=== PATIENT | female | born 1950 | race American Indian/Alaskan Native ===

== ENCOUNTER 2017-05-02 12:12 | Emergency (ER) | payer MEDICARE, MEDICAID ==
[2017-05-02 12:45] VITALS: BP 143/68
== END 2017-05-02 15:12 | disposition left against medical advice (07) ==
LOC: DL.ED 12:12
DX: Z53.21 Procedure and treatment not carried out due to patient leaving prior to being seen by health care provider (principal)

== ENCOUNTER 2017-06-30 14:54 | Inpatient (IN) | payer MEDICARE, MEDICAID ==
[2017-07-04] MEDS ORDERED: Ondansetron 4 MG/2 ML SDV IVPUSH PRN (13:52)
[2017-07-04] MEDS ORDERED: Docusate Sodium 100 MG Cap PO PRN (13:52)
[2017-07-04] MEDS ORDERED: Ondansetron 4 MG Tab.DIS PO PRN (13:52)
[2017-07-04] MEDS ORDERED: Zolpidem 5 MG Tab PO PRN (13:52)
[2017-07-04] MEDS ORDERED: Albuterol 6.7 GM Inhaler INH PRN (13:57)
--- NOTE | 2017-07-04 14:29 | PCM.HP ---
H&P History of Present Illness - General Date of Service: 07/04/17 Admit Problem/Dx: Admission Diagnosis/Problem Admission Diagnosis/Problem Cellulitis Source of Information: Patient, Old Records - History of Present Illness Initial Comments - Free Text/Narative: The patient is a 66-year-old lady who has a history of diabetes, hypertension, chronic kidney disease, neurogenic bladder status post suprapubic catheter placement. The patient has peripheral artery disease. She was admitted to [facility] with right fifth toe gangrene. The patient was noted to have peripheral artery disease requiring the vascular surgery intervention. The atherectomy and angioplasty. The patient still required a right fifth toe amputation. Subsequently the patient was discharged but she was noted to have wound dehiscence and wound infection. She was readmitted to [facility]. She was seen by ID. Plan was to use IV antibiotics. She was transferred for wound care and IV antibiotic treatment to [facility]. - Related Data Allergies/Adverse Reactions: Allergies Allergy/AdvReac Type Severity Reaction Status Date / Time aspirin Allergy Nausea Verified 06/30/17 07:22 ibuprofen Allergy Hives Verified 06/30/17 07:22 metformin Allergy Abdominal Verified 06/30/17 07:22 Pain Home Medications: Home Meds Glimepiride 2 mg PO DAILY 12/23/14 [History] Losartan Potassium 25 mg PO DAILY 12/23/14 [History] Sertraline [Zoloft] 25 mg PO DAILY 12/23/14 [History] Alendronate [Fosamax] 70 mg PO Q7D@0600 10/08/15 [History] Albuterol [Proventil HFA] 1 puff INH Q2H PRN 04/13/16 [History] Insulin Detemir [Levemir] 12 unit SUBCUT BEDTIME 04/13/16 [History] Oxybutynin [Oxybutynin ER] 10 mg PO DAILY 04/13/16 [History] atorvaSTATin [Lipitor] 10 mg PO DAILY 04/13/16 [History] Canagliflozin [Invokana] 100 mg PO DAILY 06/30/17 [History] Ciprofloxacin [Ciprofloxacin HCl] 250 mg PO BID 06/30/17 [History] Clopidogrel [Plavix] 75 mg PO DAILY 06/30/17 [History] DULoxetine [Cymbalta] 60 mg PO DAILY 06/30/17 [History] Mometasone/Formoterol [Dulera 200-5 MCG] 1 puff IH BIDRT 06/30/17 [History] Polyethylene Glycol 3350 [MiraLAX] 17 gm PO DAILY 06/30/17 [History] Past Medical History HEENT History: Reports: Impaired Vision Other HEENT History: left eyes 02/04/15 is havign surgery to "unclog the arteries ", blind in left eye Cardiovascular History: Reports: Hypertension Respiratory History: Reports: Pneumonia, Recurrent Gastrointestinal History: Reports: GERD Other Gastrointestinal History: recent problem with constipation Genitourinary History: Reports: Other (See Below) Other Genitourinary History: bladder surgery Suprapubic cather [employer] History: Reports: Musculoskeletal History: Reports: Fibromyalgia, Osteoarthritis Neurological History: Reports: Neuropathy, Diabetic Psychiatric History: Reports: None Endocrine/Metabolic History: Reports: Diabetes, Type II Hematologic History: Reports: Anemia, Other (See Below) Other Hematologic History: Cystitis Hemorrhagic Immunologic History: Reports: None Oncologic (Cancer) History: Reports: None Dermatologic History: Reports: None - Infectious Disease History Infectious Disease History: Reports: Mumps - Past Surgical History Head Surgeries/Procedures: Reports: None HEENT Surgical History: Reports: Eye Surgery, Other (See Below) Other GI Surgeries/Procedures: Thinks she had appy at same time as other surgery Other Musculoskeletal Surgeries/Procedures:: rajesh in left femur (severe broken leg per info from pt) Social & Family History - Family History Family Medical History: Noncontributory - Tobacco Use Smoking Status *Q: Current Every Day Smoker Years of Tobacco use: 53 Packs/Tins Daily: 0.5 Used Tobacco, but Quit: No Second Hand Smoke Exposure: No - Caffeine Use Caffeine Use: Reports: Coffee, Tea - Alcohol Use Days Per Week of Alcohol Use: 0 - Recreational Drug Use Recreational Drug Use: No Drug Use in Last 12 Months: No Recreational Drug Type: Reports: Marijuana/Hashish Recreational Drug Use Frequency: Socially - Living Situation & Occupation Living situation: Reports: with Family Occupation: Retired H&P Review of Systems - Review of Systems: Review Of Systems: See Below General: Reports: Fever Pulmonary: Reports: Wheezing. Denies: Shortness of Breath Cardiovascular: Denies: Chest Pain, Edema Musculoskeletal: Reports: Foot Pain Exam - Exam Exam: See Below - Vital Signs Vital Signs: Last Vital Signs Temp 37.0 C 07/04/17 13:38 Pulse 93 07/04/17 13:38 Resp 20 07/04/17 13:38 BP 135/77 07/04/17 13:38 Pulse Ox 100 07/04/17 13:38 Weight: 45.269 kg - Exam General: Alert, Oriented Neck: Supple Lungs: Normal Respiratory Effort, Wheezing Cardiovascular: Regular Rate, Regular Rhythm GI/Abdominal Exam: Normal Bowel Sounds, Soft, Non-Tender Extremities: No Pedal Edema Skin: Other (Right foot with fifth toe amputation and wound VAC dressing) Neuro Extensive - Mental Status: Alert, Oriented x3, Normal Mood/Affect *Q Meaningful Use (ADM) - VTE *Q VTE Criteria *Q: - Stroke *Q Stroke Criteria *Q: - AMI *Q AMI Criteria *Q: - Problem List (1) Cellulitis SNOMED Code(s): 725490009 ICD Code: L03.90 - CELLULITIS, UNSPECIFIED Status: Acute Current Visit: Yes Problem List Initiated/Reviewed/Updated: Yes Orders Last 24hrs: Active Orders 24 hr Category Date Time Status Patient Status [ADT] Routine ADT 07/04/17 13:52 Active Antiembolic Devices [RC] PER UNIT ROUTINE Care 07/04/17 13:56 Active Glucose [Blood Glucose Check, Bedside] [RC] QIDACANDBED Care 07/04/17 13:52 Active Oxygen Therapy [RC] PRN Care 07/04/17 13:52 Active Peripheral IV Care [RC] . DIRECTED Care 07/04/17 13:56 Active Up With Assistance [RC] ASDIRECTED Care 07/04/17 13:52 Active VTE/DVT Education [RC] PER UNIT ROUTINE Care 07/04/17 13:52 Active Vital Signs [RC] QSHIFT Care 07/04/17 13:52 Active Consistent Carbohydrate Diet [DIET] Diet 07/04/17 Dinner Active BASIC METABOLIC PANEL,BMP [CHEM] AM Lab 07/05/17 05:15 Ordered CBC WITH AUTO DIFF [HEME] AM Lab 07/05/17 05:15 Ordered Acetaminophen [Tylenol] Med 07/04/17 13:52 Active 650 mg PO Q4H PRN Albuterol [Proventil HFA] Med 07/04/17 13:57 Ordered DOSE gm INH Q2H PRN Clopidogrel [Plavix] Med 07/05/17 09:00 Ordered 75 mg PO DAILY DULoxetine [Cymbalta] Med 07/05/17 09:00 Ordered 60 mg PO DAILY Docusate Sodium [Colace] Med 07/04/17 13:52 Active 100 mg PO BID PRN Glimepiride [Amaryl] Med 07/05/17 09:00 Ordered 2 mg PO DAILY Heparin Sodium Med 07/04/17 14:00 Active 5,000 units SUBCUT Q8HR Insulin Aspart [NovoLOG] Med 07/04/17 17:00 Active See Protocol SUBCUT TIDAC Insulin Detemir [Levemir] Med 07/04/17 21:00 Ordered 12 unit SUBCUT BEDTIME Losartan [Cozaar] Med 07/05/17 09:00 Ordered 25 mg PO DAILY Mometasone/Formoterol [Dulera 200-5 MCG] Med 07/04/17 18:00 Ordered 1 puff IH BIDRT Ondansetron [Zofran ODT] Med 07/04/17 13:52 Active 4 mg PO Q6H PRN Ondansetron [Zofran] Med 07/04/17 13:52 Active 4 mg IVPUSH Q6H PRN Oxybutynin [Oxybutynin ER] Med 07/05/17 09:00 Ordered 10 mg PO DAILY Polyethylene Glycol 3350 [MiraLAX] Med 07/05/17 09:00 Ordered 17 gm PO DAILY Sertraline [Zoloft] Med 07/05/17 09:00 Ordered 25 mg PO DAILY Sodium Chloride 0.9% [Saline Flush] Med 07/04/17 13:52 Active 10 ml FLUSH ASDIRECTED PRN Zolpidem [Ambien] Med 07/04/17 13:52 Active 5 mg PO BEDTIME PRN atorvaSTATin [Lipitor] Med 07/05/17 09:00 Ordered 10 mg PO DAILY cefTRIAXone [Rocephin] 2 gm Med 07/04/17 14:15 Ordered Sodium Chloride 0.9% [Normal Saline] 100 ml IV Q24H Antiembolic Hose [OM.PC] Per Unit Routine Oth 07/04/17 13:55 Ordered Peripheral IV Insertion Adult [OM.PC] Routine Oth 07/04/17 13:52 Ordered Saline Lock Insert [OM.PC] Routine Oth 07/04/17 13:52 Ordered Resuscitation Status Routine Resus Stat 07/04/17 13:52 Ordered Medication Orders Acetaminophen (Tylenol) 650 mg PO Q4H PRN PRN Reason: Pain (Mild 1-3)/fever Albuterol (Proventil Hfa) 0 gm INH Q2H PRN PRN Reason: Shortness of Breath Atorvastatin Calcium (Lipitor) 10 mg PO DAILY [facility] Clopidogrel Bisulfate (Plavix) 75 mg PO DAILY [facility] Docusate Sodium (Colace) 100 mg PO BID PRN PRN Reason: Constipation Glimepiride (Amaryl) 2 mg PO DAILY [facility] Heparin Sodium (Porcine) (Heparin Sodium) 5,000 units SUBCUT Q8HR [facility] Ceftriaxone Sodium 2 gm/ (Sodium Chloride) 100 mls @ 200 mls/hr IV Q24H [facility] Insulin Aspart (Novolog) 0 unit SUBCUT TIDAC [facility]ERIE PRN Reason: Protocol Insulin Detemir (Levemir) 12 unit SUBCUT BEDTIME [facility] Losartan Potassium (Cozaar) 25 mg PO DAILY [facility] Mometasone Furoate/Formoterol Fumar (Dulera 200-5 Mcg) 1 puff IH BIDRT [facility] Non-Formulary Medication (Duloxetine [Cymbalta]) 60 mg PO DAILY [facility] Non-Formulary Medication (Sertraline [Zoloft]) 25 mg PO DAILY [facility] Ondansetron HCl (Zofran Odt) 4 mg PO Q6H PRN PRN Reason: nausea, able to take PO Ondansetron HCl (Zofran) 4 mg IVPUSH Q6H PRN PRN Reason: Nausea/Vomiting Oxybutynin Chloride (Oxybutynin Er) 10 mg PO DAILY [facility] Polyethylene Glycol (Miralax) 17 gm PO DAILY [facility] Sodium Chloride (Saline Flush) 10 ml FLUSH ASDIRECTED PRN PRN Reason: Keep Vein Open Zolpidem Tartrate (Ambien) 5 mg PO BEDTIME PRN PRN Reason: Sleep Assessment/Plan Comment:: The patient is a 66-year-old lady who has a history of diabetes, hypertension, chronic kidney disease, neurogenic bladder status post suprapubic catheter placement. The patient has peripheral artery disease. She was admitted to [facility] with right fifth toe gangrene. The patient was noted to have peripheral artery disease requiring the vascular surgery intervention. The atherectomy and angioplasty. The patient still required a right fifth toe amputation. Subsequently the patient was discharged but she was noted to have wound dehiscence and wound infection. She was readmitted to [facility]. She was seen by ID. Plan was to use IV antibiotics. She was transferred for wound care and IV antibiotic treatment to swing bed. 1. Right foot wound dehiscence with wound infection: The patient had wound dehiscence at the fifth toe amputation site and haddrainage and pus drainage on admission, Wound cx was growing Klebsiella pneumoniae, Group A beta Streptococcus (Streptococcus pyogenes). She was on IV vancomycin and Zosyn, ID and Podiatry consulted S/P I&D and wound vac placement, On 07/01, was growing anaerobic organism plan for further IV Abx with Ertapenem 2. Diabetes mellitus type 2: treat with Levemir continue Glimepiride Keep her on sliding scale insulin for correction 3. Acute on chronic renal failure. The patient's baseline creatinine is between 1.1 to 1.3 will monitor periodically 4. Neurogenic bladder, status post suprapubic catheter placement replaced 07/03/17 5. History of hypertension: The blood pressure is now on Higher side. She is on losartan w monitor renal fx. tests 6. Peripheral vascular disease, on Plavix. I will continue with that. 7. DVT prophylaxis with subcutaneous heparin. d/w dr. Jolley today
[2017-07-04] MEDS ORDERED: cefTRIAXone 2 GM in Sodium Chloride 0.9% 100 ML IV SCH (15:00)
[2017-07-04] MEDS: Ertapenem 1 GM in Sodium Chloride 0.9% 50 ML IV SCH (16:09)
[2017-07-04] MEDS: Heparin Sodium 5,000 Units/ML Vial SUBCUT SCH ×2 (16:09→21:35)
[2017-07-04] MEDS: Sodium Chloride 0.9% 10 ML Syringe FLUSH PRN ×3 (16:10→21:37)
[2017-07-04] MEDS: Insulin Aspart 100 Units/ML 3 ML Pen SUBCUT SCH ×2 (18:02→18:15)
[2017-07-04] MEDS: Formoterol/Mometasone 200-5 MCG 8.8 GM Inhaler IH SCH (18:15)
[2017-07-04] MEDS ORDERED: CIPROFLOXACIN 250 MG PO SCH (21:00)
[2017-07-04] MEDS: Insulin Detemir 100 Units/ML 3 ML Pen SUBCUT SCH (21:45)
[2017-07-04] MEDS: Acetaminophen 325 MG Tab PO PRN (21:56)
[2017-07-05] MEDS: Heparin Sodium 5,000 Units/ML Vial SUBCUT SCH ×3 (06:36→21:44)
[2017-07-05] MEDS: Formoterol/Mometasone 200-5 MCG 8.8 GM Inhaler IH SCH ×2 (06:37→17:25)
[2017-07-05 06:56] LABS: ANION GAP 9.9
[2017-07-05] MEDS: Insulin Aspart 100 Units/ML 3 ML Pen SUBCUT SCH ×3 (08:34→17:24)
[2017-07-05] MEDS: Losartan 25 MG Tab PO SCH (08:36)
[2017-07-05] MEDS: atorvaSTATin 10 MG Tab PO SCH (08:37)
[2017-07-05] MEDS: Oxybutynin 5 MG Tab.ER PO SCH (08:37)
[2017-07-05] MEDS: Sertraline 50 MG Tab PO SCH (08:37)
[2017-07-05] MEDS: Clopidogrel 75 MG Tab PO SCH (08:38)
[2017-07-05] MEDS: Polyethylene Glycol 3350 Powder 17 GM Packet PO SCH (08:38)
[2017-07-05] MEDS: DULoxetine 30 MG Cap PO SCH (08:38)
[2017-07-05] MEDS: Glimepiride 2 MG Tab PO SCH (08:38)
[2017-07-05] MEDS ORDERED: Oxybutynin 5 MG Tab.ER PO SCH (09:00)
[2017-07-05] MEDS: Ertapenem 1 GM in Sodium Chloride 0.9% 50 ML IV SCH (15:13)
[2017-07-05] MEDS: Sodium Chloride 0.9% 10 ML Syringe FLUSH PRN (15:13)
[2017-07-05] MEDS: Insulin Detemir 100 Units/ML 3 ML Pen SUBCUT SCH (21:38)
[2017-07-06] MEDS: Heparin Sodium 5,000 Units/ML Vial SUBCUT SCH ×3 (06:24→22:04)
[2017-07-06] MEDS: Formoterol/Mometasone 200-5 MCG 8.8 GM Inhaler IH SCH ×2 (10:28→17:18)
[2017-07-06] MEDS: Insulin Aspart 100 Units/ML 3 ML Pen SUBCUT SCH ×3 (10:28→17:17)
[2017-07-06] MEDS: Polyethylene Glycol 3350 Powder 17 GM Packet PO SCH (10:29)
[2017-07-06] MEDS: DULoxetine 30 MG Cap PO SCH (10:32)
[2017-07-06] MEDS: Glimepiride 2 MG Tab PO SCH (10:33)
[2017-07-06] MEDS: Sertraline 50 MG Tab PO SCH (10:33)
[2017-07-06] MEDS: Clopidogrel 75 MG Tab PO SCH (10:33)
[2017-07-06] MEDS: atorvaSTATin 10 MG Tab PO SCH (10:33)
[2017-07-06] MEDS: Oxybutynin 5 MG Tab.ER PO SCH (10:33)
[2017-07-06] MEDS: Losartan 25 MG Tab PO SCH (10:34)
[2017-07-06] MEDS: Acetaminophen 325 MG Tab PO PRN (10:37)
--- NOTE | 2017-07-06 11:42 | PCM.PN ---
- General Info Date of Service: 07/06/17 Admission Dx/Problem (Free Text): Admission Diagnosis/Problem Admission Diagnosis/Problem Cellulitis Subjective Update: Feeling well, eating okay. Has occasional cough but no significant sputum No complains. No fever, no chills, no chest pain, no shortness of breath. - Review of Systems General: Reports: Weakness. Denies: Fever Pulmonary: Reports: Cough. Denies: Shortness of Breath, Wheezing Cardiovascular: Denies: Chest Pain Gastrointestinal: Denies: Abdominal Pain Genitourinary: Denies: Dysuria - Patient Data Vitals - Most Recent: Last Vital Signs Temp 37.5 C 07/06/17 07:00 Pulse 88 07/06/17 07:00 Resp 18 07/06/17 07:00 BP 136/64 07/06/17 10:34 Pulse Ox 99 07/06/17 07:00 Weight - Most Recent: 45.269 kg I&O - Last 24 Hours: Intake & Output 07/05/17 07/06/17 07/06/17 22:59 06:59 14:59 Intake Total 245 150 Balance 245 150 Lab Results Last 24 Hours: Laboratory Results - last 24 hr 07/05/17 07/05/17 07/06/17 Range/Units 17:06 21:05 07:49 POC Glucose 209 H 217 H 88 (70-105) mg/dl 07/06/17 Range/Units 11:11 POC Glucose 196 H (70-105) mg/dl Med Orders - Current: Current Medications Acetaminophen (Tylenol) 650 mg PO Q4H PRN PRN Reason: Pain (Mild 1-3)/fever Last Admin: 07/06/17 10:37 Dose: 650 mg Albuterol (Proventil Hfa) 0 gm INH Q2H PRN PRN Reason: Shortness of Breath Atorvastatin Calcium (Lipitor) 10 mg PO DAILY [facility] Last Admin: 07/06/17 10:33 Dose: 10 mg Clopidogrel Bisulfate (Plavix) 75 mg PO DAILY [facility] Last Admin: 07/06/17 10:33 Dose: 75 mg Docusate Sodium (Colace) 100 mg PO BID PRN PRN Reason: Constipation Duloxetine HCl (Cymbalta) 60 mg PO DAILY [facility] Last Admin: 07/06/17 10:32 Dose: 60 mg Glimepiride (Amaryl) 2 mg PO DAILY [facility] Last Admin: 07/06/17 10:33 Dose: 2 mg Heparin Sodium (Porcine) (Heparin Sodium) 5,000 units SUBCUT Q8HR [facility] Last Admin: 07/06/17 06:24 Dose: 5,000 units Ertapenem 1 gm/ Sodium (Chloride) 50 mls @ 100 mls/hr IV Q24H [facility] Insulin Aspart (Novolog) 0 unit SUBCUT TIDAC [facility] PRN Reason: Protocol Last Admin: 07/06/17 10:28 Dose: Not Given Insulin Detemir (Levemir) 12 unit SUBCUT BEDTIME [facility] Last Admin: 07/05/17 21:38 Dose: Not Given Losartan Potassium (Cozaar) 25 mg PO DAILY [facility] Last Admin: 07/06/17 10:34 Dose: 25 mg Mometasone Furoate/Formoterol Fumar (Dulera 200-5 Mcg) 1 puff IH BIDRT [facility] Last Admin: 07/06/17 10:28 Dose: 1 puff Non-Formulary Medication (Mirabegron [Myrbetriq]) 50 mg PO DAILY [facility] Ondansetron HCl (Zofran Odt) 4 mg PO Q6H PRN PRN Reason: nausea, able to take PO Last Admin: 07/04/17 22:00 Dose: 4 mg Ondansetron HCl (Zofran) 4 mg IVPUSH Q6H PRN PRN Reason: Nausea/Vomiting Oxybutynin Chloride (Oxybutynin Er) 15 mg PO DAILY [facility] Last Admin: 07/06/17 10:33 Dose: 15 mg Polyethylene Glycol (Miralax) 17 gm PO DAILY [facility] Last Admin: 07/06/17 10:29 Dose: Not Given Sertraline HCl (Zoloft) 25 mg PO DAILY [facility] Last Admin: 07/06/17 10:33 Dose: 25 mg Sodium Chloride (Saline Flush) 10 ml FLUSH ASDIRECTED PRN PRN Reason: Keep Vein Open Last Admin: 07/05/17 15:13 Dose: 10 ml Zolpidem Tartrate (Ambien) 5 mg PO BEDTIME PRN PRN Reason: Sleep Discontinued Medications Ceftriaxone Sodium 2 gm/ (Sodium Chloride) 100 mls @ 200 mls/hr IV Q24H [facility] Ertapenem 1 gm/ Sodium (Chloride) 50 mls @ 100 mls/hr IV Q24H [facility] Last Admin: 07/05/17 15:13 Dose: 100 mls/hr Non-Formulary Medication (Ciprofloxacin [Ciprofloxacin Hcl]) 250 mg PO BID [facility] Oxybutynin Chloride (Oxybutynin Er) 10 mg PO DAILY [facility] - Exam Quality Assessment: No: Supplemental Oxygen General: Alert, Oriented Neck: Supple Lungs: Clear to Auscultation, Normal Respiratory Effort Extremities: Normal Inspection, No Pedal Edema, Other (Right foot wound VAC) - Problem List & Annotations (1) Cellulitis SNOMED Code(s): 109447222 Code(s): L03.90 - CELLULITIS, UNSPECIFIED Status: Acute Current Visit: Yes - Problem List Review Problem List Initiated/Reviewed/Updated: Yes - My Orders Last 24 Hours: My Active Orders 07/06/17 15:00 Ertapenem [INVanz] 1 gm Sodium Chloride 0.9% [Normal Saline] 50 ml IV Q24H 07/11/17 05:11 ALANINE AMINOTRANSFERASE,ALT [CHEM] AM CRP [C-REACTIVE PROTEIN] [CHEM] AM SEDIMENTATION RATE MANUAL [HEME] AM 07/11/17 10:14 ASPARTATE AMNIOTRANSFERASE,AST [CHEM] Routine BASIC METABOLIC PANEL,BMP [CHEM] Routine C-REACTIVE PROTEIN [CHEM] Routine CBC WITH AUTO DIFF [HEME] Routine 07/11/17 10:18 CPK [CREATINE KINASE,CK] [CHEM] Routine - Plan Plan:: The patient is a 66-year-old lady who has a history of diabetes, hypertension, chronic kidney disease, neurogenic bladder status post suprapubic catheter placement. The patient has peripheral artery disease. She was admitted to [facility] with right fifth toe gangrene. The patient was noted to have peripheral artery disease requiring the vascular surgery intervention. The atherectomy and angioplasty. The patient still required a right fifth toe amputation. Subsequently the patient was discharged but she was noted to have wound dehiscence and wound infection. She was readmitted to [facility]. She was seen by ID. Plan was to use IV antibiotics. She was transferred for wound care and IV antibiotic treatment to [facility] bed. 1. Right foot wound dehiscence with wound infection: The patient had wound dehiscence at the fifth toe amputation site and haddrainage and pus drainage on admission, Wound cx was growing Klebsiella pneumoniae, Group A beta Streptococcus (Streptococcus pyogenes). She was on IV vancomycin and Zosyn, ID and Podiatry consulted S/P I&D and wound vac placement, On 07/01, was growing anaerobic organism plan for further IV Abx with Ertapenem Follow-up labs ordered for next Tuesday 2. Diabetes mellitus type 2: treat with Levemir continue Glimepiride Keep her on sliding scale insulin for correction 3. Acute on chronic renal failure. The patient's baseline creatinine is between 1.1 to 1.3 will monitor periodically 4. Neurogenic bladder, status post suprapubic catheter placement replaced 07/03/17 5. History of hypertension The blood pressure is acceptable Continue to treat with losartan monitor renal fx. tests 6. Peripheral vascular disease, on Plavix. I will continue with that. 7. DVT prophylaxis with subcutaneous heparin.
[2017-07-06] MEDS: Sodium Chloride 0.9% 10 ML Syringe FLUSH PRN ×2 (15:44→16:33)
[2017-07-06] MEDS: Ertapenem 1 GM in Sodium Chloride 0.9% 50 ML IV SCH (15:51)
[2017-07-06] MEDS: Insulin Detemir 100 Units/ML 3 ML Pen SUBCUT SCH (21:01)
[2017-07-07] MEDS: Heparin Sodium 5,000 Units/ML Vial SUBCUT SCH ×3 (05:52→22:00)
[2017-07-07] MEDS: Non-Formulary Medication 1 Each (Mirabegron [Myrbetriq] 50 MG) PO SCH (06:04)
[2017-07-07] MEDS: Formoterol/Mometasone 200-5 MCG 8.8 GM Inhaler IH SCH ×2 (08:11→19:36)
[2017-07-07] MEDS: Insulin Aspart 100 Units/ML 3 ML Pen SUBCUT SCH ×3 (08:11→17:50)
[2017-07-07] MEDS: Losartan 25 MG Tab PO SCH (09:12)
[2017-07-07] MEDS: Oxybutynin 5 MG Tab.ER PO SCH (09:12)
[2017-07-07] MEDS: Sertraline 50 MG Tab PO SCH (09:13)
[2017-07-07] MEDS: DULoxetine 30 MG Cap PO SCH (09:13)
[2017-07-07] MEDS: Glimepiride 2 MG Tab PO SCH (09:13)
[2017-07-07] MEDS: atorvaSTATin 10 MG Tab PO SCH (09:14)
[2017-07-07] MEDS: Polyethylene Glycol 3350 Powder 17 GM Packet PO SCH (09:14)
[2017-07-07] MEDS: Clopidogrel 75 MG Tab PO SCH (09:16)
[2017-07-07] MEDS: Sodium Chloride 0.9% 10 ML Syringe FLUSH PRN (14:40)
[2017-07-07] MEDS: Ertapenem 1 GM in Sodium Chloride 0.9% 50 ML IV SCH (14:40)
[2017-07-07] MEDS: Insulin Detemir 100 Units/ML 3 ML Pen SUBCUT SCH (20:37)
[2017-07-08] MEDS: Heparin Sodium 5,000 Units/ML Vial SUBCUT SCH ×3 (06:04→21:23)
[2017-07-08] MEDS: Insulin Aspart 100 Units/ML 3 ML Pen SUBCUT SCH ×3 (08:53→17:12)
[2017-07-08] MEDS: Formoterol/Mometasone 200-5 MCG 8.8 GM Inhaler IH SCH ×2 (08:53→17:08)
[2017-07-08] MEDS: Polyethylene Glycol 3350 Powder 17 GM Packet PO SCH (08:54)
[2017-07-08] MEDS: Losartan 25 MG Tab PO SCH (08:56)
[2017-07-08] MEDS: Glimepiride 2 MG Tab PO SCH (08:56)
[2017-07-08] MEDS: atorvaSTATin 10 MG Tab PO SCH (08:57)
[2017-07-08] MEDS: DULoxetine 30 MG Cap PO SCH (08:57)
[2017-07-08] MEDS: Oxybutynin 5 MG Tab.ER PO SCH (08:58)
[2017-07-08] MEDS: Clopidogrel 75 MG Tab PO SCH (08:58)
[2017-07-08] MEDS: Sertraline 50 MG Tab PO SCH (08:58)
[2017-07-08] MEDS: Acetaminophen 325 MG Tab PO PRN (14:40)
[2017-07-08] MEDS: Ertapenem 1 GM in Sodium Chloride 0.9% 50 ML IV SCH (14:47)
[2017-07-08] MEDS: Sodium Chloride 0.9% 10 ML Syringe FLUSH PRN ×2 (14:47→15:21)
[2017-07-08] MEDS: Non-Formulary Medication 1 Each (Mirabegron [Myrbetriq] 50 MG) PO SCH (18:59)
[2017-07-08] MEDS: Insulin Detemir 100 Units/ML 3 ML Pen SUBCUT SCH (21:23)
[2017-07-09] MEDS: Heparin Sodium 5,000 Units/ML Vial SUBCUT SCH ×3 (06:06→22:09)
[2017-07-09] MEDS: Oxybutynin 5 MG Tab.ER PO SCH (09:06)
[2017-07-09] MEDS: Formoterol/Mometasone 200-5 MCG 8.8 GM Inhaler IH SCH ×2 (09:06→17:20)
[2017-07-09] MEDS: Sertraline 50 MG Tab PO SCH (09:06)
[2017-07-09] MEDS: Losartan 25 MG Tab PO SCH (09:07)
[2017-07-09] MEDS: DULoxetine 30 MG Cap PO SCH (09:07)
[2017-07-09] MEDS: Glimepiride 2 MG Tab PO SCH (09:08)
[2017-07-09] MEDS: Clopidogrel 75 MG Tab PO SCH (09:08)
[2017-07-09] MEDS: atorvaSTATin 10 MG Tab PO SCH (09:08)
[2017-07-09] MEDS: Insulin Aspart 100 Units/ML 3 ML Pen SUBCUT SCH ×3 (09:43→17:10)
[2017-07-09] MEDS: Polyethylene Glycol 3350 Powder 17 GM Packet PO SCH (09:49)
[2017-07-09] MEDS: Triamcinolone Acetonide 0.1% Crm 15 GM Tube TOP SCH ×2 (09:49→22:08)
[2017-07-09] MEDS: Sodium Chloride 0.9% 10 ML Syringe FLUSH PRN ×2 (15:05→15:42)
[2017-07-09] MEDS: Ertapenem 1 GM in Sodium Chloride 0.9% 50 ML IV SCH (15:05)
[2017-07-09] MEDS: Insulin Detemir 100 Units/ML 3 ML Pen SUBCUT SCH (22:09)
[2017-07-10] MEDS: Heparin Sodium 5,000 Units/ML Vial SUBCUT SCH ×3 (06:10→21:15)
[2017-07-10] MEDS: Insulin Aspart 100 Units/ML 3 ML Pen SUBCUT SCH ×3 (08:36→17:18)
[2017-07-10] MEDS: Polyethylene Glycol 3350 Powder 17 GM Packet PO SCH (08:37)
[2017-07-10] MEDS: DULoxetine 30 MG Cap PO SCH (09:01)
[2017-07-10] MEDS: Sertraline 50 MG Tab PO SCH (09:01)
[2017-07-10] MEDS: atorvaSTATin 10 MG Tab PO SCH (09:01)
[2017-07-10] MEDS: Glimepiride 2 MG Tab PO SCH (09:01)
[2017-07-10] MEDS: Formoterol/Mometasone 200-5 MCG 8.8 GM Inhaler IH SCH ×2 (09:02→17:16)
[2017-07-10] MEDS: Clopidogrel 75 MG Tab PO SCH (09:02)
[2017-07-10] MEDS: Losartan 25 MG Tab PO SCH (09:02)
[2017-07-10] MEDS: Triamcinolone Acetonide 0.1% Crm 15 GM Tube TOP SCH ×2 (09:03→21:15)
[2017-07-10] MEDS ORDERED: Polyethylene Glycol 3350 Powder 17 GM Packet PO PRN (09:31)
[2017-07-10] MEDS: Oxybutynin 5 MG Tab.ER PO SCH (12:20)
[2017-07-10] MEDS: Ertapenem 1 GM in Sodium Chloride 0.9% 50 ML IV SCH (14:53)
[2017-07-10] MEDS: Sodium Chloride 0.9% 10 ML Syringe FLUSH PRN (15:48)
[2017-07-10] MEDS: Insulin Detemir 100 Units/ML 3 ML Pen SUBCUT SCH (20:46)
[2017-07-11] MEDS: Heparin Sodium 5,000 Units/ML Vial SUBCUT SCH ×3 (05:58→22:44)
[2017-07-11 07:16] LABS: ANION GAP 15.4
[2017-07-11] MEDS: Formoterol/Mometasone 200-5 MCG 8.8 GM Inhaler IH SCH ×2 (07:47→18:02)
[2017-07-11] MEDS: Insulin Aspart 100 Units/ML 3 ML Pen SUBCUT SCH ×3 (08:25→18:03)
[2017-07-11] MEDS: atorvaSTATin 10 MG Tab PO SCH (11:11)
[2017-07-11] MEDS: Losartan 25 MG Tab PO SCH (11:11)
[2017-07-11] MEDS: Glimepiride 2 MG Tab PO SCH (11:12)
[2017-07-11] MEDS: Clopidogrel 75 MG Tab PO SCH (11:12)
[2017-07-11] MEDS: Sertraline 50 MG Tab PO SCH (11:12)
[2017-07-11] MEDS: Oxybutynin 5 MG Tab.ER PO SCH (11:13)
[2017-07-11] MEDS: Triamcinolone Acetonide 0.1% Crm 15 GM Tube TOP SCH ×2 (11:13→22:50)
[2017-07-11] MEDS: Ertapenem 1 GM in Sodium Chloride 0.9% 50 ML IV SCH (16:16)
[2017-07-11] MEDS: DULoxetine 30 MG Cap PO SCH (16:46)
[2017-07-11] MEDS ORDERED: Fluconazole 100 MG Tab PO ONE (18:00)
[2017-07-11] MEDS: Insulin Detemir 100 Units/ML 3 ML Pen SUBCUT SCH (22:42)
[2017-07-12] MEDS: Acetaminophen 325 MG Tab PO PRN ×2 (00:23→06:26)
[2017-07-12] MEDS: Heparin Sodium 5,000 Units/ML Vial SUBCUT SCH ×3 (06:26→22:22)
[2017-07-12] MEDS: Insulin Aspart 100 Units/ML 3 ML Pen SUBCUT SCH ×3 (08:13→16:51)
[2017-07-12] MEDS: Fluconazole 100 MG Tab PO SCH (08:26)
[2017-07-12] MEDS: Formoterol/Mometasone 200-5 MCG 8.8 GM Inhaler IH SCH ×2 (08:26→21:35)
[2017-07-12] MEDS: atorvaSTATin 10 MG Tab PO SCH (08:29)
[2017-07-12] MEDS: Sertraline 50 MG Tab PO SCH (08:29)
[2017-07-12] MEDS: Oxybutynin 5 MG Tab.ER PO SCH (08:29)
[2017-07-12] MEDS: DULoxetine 30 MG Cap PO SCH (08:30)
[2017-07-12] MEDS: Clopidogrel 75 MG Tab PO SCH (08:30)
[2017-07-12] MEDS: Glimepiride 2 MG Tab PO SCH (08:30)
[2017-07-12] MEDS: Losartan 25 MG Tab PO SCH (08:30)
[2017-07-12] MEDS: Triamcinolone Acetonide 0.1% Crm 15 GM Tube TOP SCH ×2 (08:31→22:20)
[2017-07-12] MEDS ORDERED: LORazepam 1 MG Tab PO ONE (10:00)
[2017-07-12] MEDS ORDERED: Haloperidol Lactate 5 MG/ML SDV IM ONE (12:17)
--- NOTE | 2017-07-12 14:03 | CR ---
Clinical history: 66-year-old hospitalized female with chest wall pain (fall). Interpretation: AP supine chest film reveals central venous line on the right. No obvious rib fracture or lung contusion, pleural effusion or pneumothorax. Chronic abnormal interstitial pattern but right upper lobe masslike infiltrate demonstrated on Sep ru 2016 no longer present. No new lung mass, hilar lymphadenopathy or focal lobar pneumonia. CONCLUSION: No rib fractures. Platelike atelectasis both bases.
--- NOTE | 2017-07-12 14:23 | CT ---
Clinical history: 66-year-old hospitalized female with increased confusion (fell overnight). TECHNIQUE: Volume acquisition of data semiemergent unenhanced CT scan of the head and brain obtained with patient lying supine on the Siemens multi slice CT scanner [facility]. All data archived in the PACS system for storage and study (bone/brain windows). Interpretation: Negative exam. Uniformly thick bony calvarium without sign of skull fracture, underlying brain contusion or epidural /subdural hematoma. Symmetric clear pneumatization of the mastoid and paranasal sinuses. Cerebellum and brainstem unremar kable. Symmetric morales-white matter pattern with age appropriate atrophy and underlying mirror-image normal v entricular system. No sign of supratentorial or posterior fossa mass lesion. No hydrocephalus. Isolated small left thala vik infarct. No other focal areas of ischemic infarct or signs of encephalomalacia. No sign of acute intracerebral/intraventricular/subarachnoid bleed. CONCLUSION: No sign of skull fracture or closed head trauma. Isolated small left thalamic infarct. At [facility].
[2017-07-12] MEDS: Ertapenem 1 GM in Sodium Chloride 0.9% 50 ML IV SCH (15:28)
--- NOTE | 2017-07-12 15:31 | PCM.PN ---
- General Info Date of Service: 07/12/17 Subjective Update: Patient seen under swingbed today. patient has been having episodes of hallucinations since yesterday. She has been having this prior to a fall. She is able to tolerated her meals. no report of constipation. history is mainly supplied by staff. Somehow, patient is able to recollect that she was in Swingbed because of her foot problems. - Patient Data Vitals - Most Recent: Last Vital Signs Temp 98.6 F 07/12/17 14:47 Pulse 92 07/12/17 14:47 Resp 20 07/12/17 14:47 BP 152/81 H 07/12/17 14:47 Pulse Ox 95 07/12/17 14:47 Weight - Most Recent: 95 lb 1.6 oz I&O - Last 24 Hours: Intake & Output 07/12/17 07/12/17 07/12/17 06:59 14:59 22:59 Intake Total 100 445 Output Total 125 550 Balance -25 -105 Lab Results Last 24 Hours: Laboratory Results - last 24 hr 07/11/17 07/11/17 07/11/17 Range/Units 15:50 16:43 20:48 POC Glucose 170 H 134 H (70-105) mg/dl Urine Color Yellow (YELLOW) Urine Appearance Turbid (CLEAR) Urine pH 5.5 (5.0-9.0) Ur Specific [place] 1.025 (1.005-1.030) Urine Protein >=300 H (NEGATIVE) Urine Glucose (UA) Negative (NEGATIVE) Urine Ketones 15 H (NEGATIVE) Urine Occult Blood Trace-lysed H (NEGATIVE) Urine Nitrite Negative (NEGATIVE) Urine Bilirubin Negative (NEGATIVE) Urine Urobilinogen 0.2 (0.2-1.0) mg/dL Ur Leukocyte Esterase Small H (NEGATIVE) Urine RBC 5-10 H /HPF Urine WBC 20-30 H (0-5/HPF) /HPF Ur Epithelial Cells Rare /HPF Amorphous Sediment Rare (0/HPF) /HPF Urine Bacteria Few (0-FEW/HPF) /HPF Urine Yeast Many H (0/HPF) /HPF Urine Opiates Screen (NEGATIVE) Ur Oxycodone Screen (NEGATIVE) Urine Methadone Screen (NEGATIVE) Ur Barbiturates Screen (NEGATIVE) U Tricyclic Antidepress (NEGATIVE) Ur Phencyclidine Scrn (NEGATIVE) Ur Amphetamine Screen (NEGATIVE) U Methamphetamines Scrn (NEGATIVE) Urine MDMA Screen (NEGATIVE) U Benzodiazepines Scrn (NEGATIVE) Urine Cocaine Screen (NEGATIVE) U Marijuana (THC) Screen (NEGATIVE) 07/12/17 07/12/17 07/12/17 Range/Units 07:40 08:40 11:11 POC Glucose 84 116 H (70-105) mg/dl Urine Color (YELLOW) Urine Appearance (CLEAR) Urine pH (5.0-9.0) Ur Specific [place] (1.005-1.030) Urine Protein (NEGATIVE) Urine Glucose (UA) (NEGATIVE) Urine Ketones (NEGATIVE) Urine Occult Blood (NEGATIVE) Urine Nitrite (NEGATIVE) Urine Bilirubin (NEGATIVE) Urine Urobilinogen (0.2-1.0) mg/dL Ur Leukocyte Esterase (NEGATIVE) Urine RBC /HPF Urine WBC (0-5/HPF) /HPF Ur Epithelial Cells /HPF Amorphous Sediment (0/HPF) /HPF Urine Bacteria (0-FEW/HPF) /HPF Urine Yeast (0/HPF) /HPF Urine Opiates Screen Negative (NEGATIVE) Ur Oxycodone Screen Negative (NEGATIVE) Urine Methadone Screen Negative (NEGATIVE) Ur Barbiturates Screen Negative (NEGATIVE) U Tricyclic Antidepress Negative (NEGATIVE) Ur Phencyclidine Scrn Negative (NEGATIVE) Ur Amphetamine Screen Negative (NEGATIVE) U Methamphetamines Scrn Negative (NEGATIVE) Urine MDMA Screen Negative (NEGATIVE) U Benzodiazepines Scrn Negative (NEGATIVE) Urine Cocaine Screen Negative (NEGATIVE) U Marijuana (THC) Screen Positive H (NEGATIVE) 07/12/17 07/12/17 Range/Units 14:24 15:08 POC Glucose 57 L 82 (70-105) mg/dl Urine Color (YELLOW) Urine Appearance (CLEAR) Urine pH (5.0-9.0) Ur Specific [place] (1.005-1.030) Urine Protein (NEGATIVE) Urine Glucose (UA) (NEGATIVE) Urine Ketones (NEGATIVE) Urine Occult Blood (NEGATIVE) Urine Nitrite (NEGATIVE) Urine Bilirubin (NEGATIVE) Urine Urobilinogen (0.2-1.0) mg/dL Ur Leukocyte Esterase (NEGATIVE) Urine RBC /HPF Urine WBC (0-5/HPF) /HPF Ur Epithelial Cells /HPF Amorphous Sediment (0/HPF) /HPF Urine Bacteria (0-FEW/HPF) /HPF Urine Yeast (0/HPF) /HPF Urine Opiates Screen (NEGATIVE) Ur Oxycodone Screen (NEGATIVE) Urine Methadone Screen (NEGATIVE) Ur Barbiturates Screen (NEGATIVE) U Tricyclic Antidepress (NEGATIVE) Ur Phencyclidine Scrn (NEGATIVE) Ur Amphetamine Screen (NEGATIVE) U Methamphetamines Scrn (NEGATIVE) Urine MDMA Screen (NEGATIVE) U Benzodiazepines Scrn (NEGATIVE) Urine Cocaine Screen (NEGATIVE) U Marijuana (THC) Screen (NEGATIVE) Med Orders - Current: Current Medications Acetaminophen (Tylenol) 650 mg PO Q4H PRN PRN Reason: Pain (Mild 1-3)/fever Last Admin: 07/12/17 06:26 Dose: 650 mg Albuterol (Proventil Hfa) 0 gm INH Q2H PRN PRN Reason: Shortness of Breath Alendronate Sodium (Fosamax) 70 mg PO Q168H [facility] Last Admin: 07/11/17 05:57 Dose: 70 mg Atorvastatin Calcium (Lipitor) 10 mg PO DAILY [facility] Last Admin: 07/12/17 08:29 Dose: 10 mg Clopidogrel Bisulfate (Plavix) 75 mg PO DAILY [facility] Last Admin: 07/12/17 08:30 Dose: 75 mg Docusate Sodium (Colace) 100 mg PO BID PRN PRN Reason: Constipation Duloxetine HCl (Cymbalta) 30 mg PO DAILY [facility] Last Admin: 07/12/17 08:30 Dose: 30 mg Fluconazole (Diflucan) 100 mg PO DAILY [facility] Stop: 07/22/17 09:01 Last Admin: 07/12/17 08:26 Dose: 100 mg Glimepiride (Amaryl) 2 mg PO DAILY [facility] Last Admin: 07/12/17 08:30 Dose: 2 mg Heparin Sodium (Porcine) (Heparin Sodium) 5,000 units SUBCUT Q8HR [facility] Last Admin: 07/12/17 06:26 Dose: 5,000 units Ertapenem 1 gm/ Sodium (Chloride) 50 mls @ 100 mls/hr IV Q24H [facility] Last Admin: 07/11/17 16:16 Dose: 100 mls/hr Dextrose/Sodium Chloride (Dextrose 5%-Normal Saline) 1,000 mls @ 75 mls/hr IV ASDIRECTED [facility] Insulin Aspart (Novolog) 0 unit SUBCUT TIDAC [facility] PRN Reason: Protocol Last Admin: 07/12/17 12:53 Dose: Not Given Insulin Detemir (Levemir) 12 unit SUBCUT BEDTIME [facility] Last Admin: 07/11/17 22:42 Dose: Not Given Losartan Potassium (Cozaar) 25 mg PO DAILY [facility] Last Admin: 07/12/17 08:30 Dose: 25 mg Mometasone Furoate/Formoterol Fumar (Dulera 200-5 Mcg) 1 puff IH BIDRT [facility] Last Admin: 07/12/17 08:26 Dose: 1 puff Ondansetron HCl (Zofran Odt) 4 mg PO Q6H PRN PRN Reason: nausea, able to take PO Last Admin: 07/04/17 22:00 Dose: 4 mg Oxybutynin Chloride (Oxybutynin Er) 15 mg PO DAILY [facility] Last Admin: 07/12/17 08:29 Dose: 15 mg Polyethylene Glycol (Miralax) 17 gm PO DAILY PRN PRN Reason: Constipation Sodium Chloride (Saline Flush) 10 ml FLUSH ASDIRECTED PRN PRN Reason: Keep Vein Open Last Admin: 07/10/17 15:48 Dose: 10 ml Triamcinolone Acetonide (Triamcinolone Acetonide 0.1% Crm) 0 gm TOP BID [facility] Last Admin: 07/12/17 08:31 Dose: 1 applic Zolpidem Tartrate (Ambien) 5 mg PO BEDTIME PRN PRN Reason: Sleep Discontinued Medications Duloxetine HCl (Cymbalta) 60 mg PO DAILY [facility] Last Admin: 07/11/17 16:46 Dose: Not Given Fluconazole (Diflucan) 200 mg PO ONETIME ONE Stop: 07/11/17 18:01 Last Admin: 07/11/17 18:03 Dose: 200 mg Haloperidol Lactate (Haldol) 2 mg IM ONETIME ONE Stop: 07/12/17 12:18 Last Admin: 07/12/17 12:49 Dose: 2 mg Ceftriaxone Sodium 2 gm/ (Sodium Chloride) 100 mls @ 200 mls/hr IV Q24H [facility] Ertapenem 1 gm/ Sodium (Chloride) 50 mls @ 100 mls/hr IV Q24H [facility] Last Admin: 07/05/17 15:13 Dose: 100 mls/hr Lorazepam (Ativan) 1 mg PO ONETIME ONE Stop: 07/12/17 10:01 Last Admin: 07/12/17 10:36 Dose: 1 mg Non-Formulary Medication (Ciprofloxacin [Ciprofloxacin Hcl]) 250 mg PO BID [facility] Non-Formulary Medication (Mirabegron [Myrbetriq]) 50 mg PO DAILY [facility] Last Admin: 07/08/17 18:59 Dose: Not Given Ondansetron HCl (Zofran) 4 mg IVPUSH Q6H PRN PRN Reason: Nausea/Vomiting Oxybutynin Chloride (Oxybutynin Er) 10 mg PO DAILY [facility] Polyethylene Glycol (Miralax) 17 gm PO DAILY [facility] Last Admin: 07/10/17 08:37 Dose: Not Given Sertraline HCl (Zoloft) 25 mg PO DAILY [facility] Last Admin: 07/12/17 08:29 Dose: 25 mg - Exam General: No: Other Lungs: Clear to Auscultation, Normal Respiratory Effort Cardiovascular: Regular Rate, Regular Rhythm GI/Abdominal Exam: Normal Bowel Sounds, Soft, Non-Tender Extremities: No Pedal Edema Psy/Mental Status: Agitated - Problem List Review Problem List Initiated/Reviewed/Updated: Yes - My Orders Last 24 Hours: My Active Orders 07/12/17 15:30 Dextrose 5%-Normal Saline @ 75 MLS/HR(1000ml) Dextrose 5%-0.9% NaCl [Dextrose 5 %-Normal Saline] 1,000 ml IV ASDIRECTED 07/18/17 06:00 ALANINE AMINOTRANSFERASE,ALT [CHEM] Routine CBC WITH AUTO DIFF [HEME] Routine CREATININE W/GFR [CHEM] Routine CRP [C-REACTIVE PROTEIN] [CHEM] Routine ESR [SEDIMENTATION RATE MANUAL] [HEME] Routine - Plan Plan:: For the episodes of hallucinations, a CT brain was ordered, await final reading. Fall precautions advised, she has been transferred to a room near nursing station where she can be watched closely. She was given Ativan prior to CT but did not respond well. She responded well to Haldol 2mg IM. EKG in the past showed normal QT. review of recent work up showed a normal CRP, and findings suggestive of fungal infection in the urine which she was started on diflucan. on review of EPIC records, she has had fungal infection in her urine before. with regards to the hallucination medication-induced, review of prior meds done. Apparently, her Zoloft was discontinued when she visited [facility] a provider in the clinic and this was switched to Cymbalta, which the niece who later visited in the afternoon attested that the patient has not been taking her medications, including Cymbalta, at home. Cymbalta was reinitiated when she was admitted in [place] at 60mh daily and this was lowered down to 30mg yesterday. we will monitor continued episodes of hallucinations given the changes made recently. also a urine drug screen was ran (given that family members have visited days prior to onset), UDS showed positive for cannabinoid. had hypoglycemia at 57mg/dl after CT scan, was not able to have lunch. was given juice and repeat was 80smg/dL. we will start D5NS and monitor sugars. hold insulin for now until patient is able to eat.
[2017-07-12] MEDS: Dextrose 5%-0.9% NaCl 1,000 ML IV SCH (16:11)
[2017-07-13] MEDS: Acetaminophen 325 MG Tab PO PRN ×4 (05:34→21:32)
[2017-07-13] MEDS: Dextrose 5%-0.9% NaCl 1,000 ML IV SCH (05:44)
[2017-07-13] MEDS: Heparin Sodium 5,000 Units/ML Vial SUBCUT SCH ×3 (05:50→21:29)
[2017-07-13] MEDS: Insulin Aspart 100 Units/ML 3 ML Pen SUBCUT SCH ×3 (09:45→17:16)
[2017-07-13] MEDS: Fluconazole 100 MG Tab PO SCH (09:46)
[2017-07-13] MEDS: Glimepiride 2 MG Tab PO SCH (09:46)
[2017-07-13] MEDS: Losartan 25 MG Tab PO SCH (09:46)
[2017-07-13] MEDS: DULoxetine 30 MG Cap PO SCH (09:46)
[2017-07-13] MEDS: Clopidogrel 75 MG Tab PO SCH (09:47)
[2017-07-13] MEDS: atorvaSTATin 10 MG Tab PO SCH (09:47)
[2017-07-13] MEDS: Formoterol/Mometasone 200-5 MCG 8.8 GM Inhaler IH SCH ×2 (09:47→18:09)
[2017-07-13] MEDS: Triamcinolone Acetonide 0.1% Crm 15 GM Tube TOP SCH ×2 (09:47→20:55)
[2017-07-13] MEDS: Oxybutynin 5 MG Tab.ER PO SCH (11:14)
[2017-07-13] MEDS: Ertapenem 1 GM Vial IVPUSH SCH (15:28)
[2017-07-13] MEDS: Insulin Detemir 100 Units/ML 3 ML Pen SUBCUT SCH (20:56)
[2017-07-13] MEDS: Sodium Chloride 0.9% 10 ML Syringe FLUSH PRN (21:20)
[2017-07-14] MEDS: Heparin Sodium 5,000 Units/ML Vial SUBCUT SCH ×3 (06:09→21:44)
[2017-07-14] MEDS: Acetaminophen 325 MG Tab PO PRN ×3 (08:13→21:43)
[2017-07-14] MEDS: Formoterol/Mometasone 200-5 MCG 8.8 GM Inhaler IH SCH ×2 (08:21→17:30)
[2017-07-14] MEDS: Insulin Detemir 100 Units/ML 3 ML Pen SUBCUT SCH ×2 (08:22→21:37)
[2017-07-14] MEDS: DULoxetine 30 MG Cap PO SCH (09:25)
[2017-07-14] MEDS: Fluconazole 100 MG Tab PO SCH (09:25)
[2017-07-14] MEDS: Clopidogrel 75 MG Tab PO SCH (09:26)
[2017-07-14] MEDS: Glimepiride 2 MG Tab PO SCH (09:26)
[2017-07-14] MEDS: Losartan 25 MG Tab PO SCH (09:27)
[2017-07-14] MEDS: atorvaSTATin 10 MG Tab PO SCH (09:27)
[2017-07-14] MEDS: Oxybutynin 5 MG Tab.ER PO SCH (09:36)
[2017-07-14] MEDS: Triamcinolone Acetonide 0.1% Crm 15 GM Tube TOP SCH ×2 (09:40→21:41)
[2017-07-14] MEDS: Insulin Aspart 100 Units/ML 3 ML Pen SUBCUT SCH ×3 (10:28→17:29)
[2017-07-14] MEDS: Ertapenem 1 GM Vial IVPUSH SCH (14:36)
[2017-07-14] MEDS ORDERED: OLANZapine 10 MG Vial IM ONE (23:26)
[2017-07-15] MEDS: Heparin Sodium 5,000 Units/ML Vial SUBCUT SCH ×3 (06:58→21:39)
[2017-07-15] MEDS: Insulin Aspart 100 Units/ML 3 ML Pen SUBCUT SCH ×3 (08:11→17:12)
[2017-07-15] MEDS: Glimepiride 2 MG Tab PO SCH (08:23)
[2017-07-15] MEDS: Losartan 25 MG Tab PO SCH (08:23)
[2017-07-15] MEDS: Insulin Detemir 100 Units/ML 3 ML Pen SUBCUT SCH ×2 (08:25→21:45)
[2017-07-15] MEDS: Oxybutynin 5 MG Tab.ER PO SCH (08:25)
[2017-07-15] MEDS: Clopidogrel 75 MG Tab PO SCH (08:25)
[2017-07-15] MEDS: Fluconazole 100 MG Tab PO SCH (08:25)
[2017-07-15] MEDS: atorvaSTATin 10 MG Tab PO SCH (08:25)
[2017-07-15] MEDS: DULoxetine 30 MG Cap PO SCH (08:25)
[2017-07-15] MEDS: Formoterol/Mometasone 200-5 MCG 8.8 GM Inhaler IH SCH ×2 (08:26→17:17)
[2017-07-15] MEDS: Triamcinolone Acetonide 0.1% Crm 15 GM Tube TOP SCH ×2 (08:26→20:31)
[2017-07-15] MEDS: Acetaminophen 325 MG Tab PO PRN ×2 (14:58→20:24)
[2017-07-15] MEDS: Ertapenem 1 GM Vial IVPUSH SCH (15:16)
[2017-07-15] MEDS: metroNIDAZOLE 250 MG Tab PO SCH ×2 (16:11→21:39)
[2017-07-15] MEDS: cefTRIAXone 2 GM Vial IVPUSH SCH (16:11)
[2017-07-16] MEDS: Heparin Sodium 5,000 Units/ML Vial SUBCUT SCH ×3 (05:51→21:39)
[2017-07-16] MEDS: metroNIDAZOLE 250 MG Tab PO SCH ×3 (05:52→21:40)
[2017-07-16] MEDS: Formoterol/Mometasone 200-5 MCG 8.8 GM Inhaler IH SCH ×2 (06:00→17:14)
[2017-07-16] MEDS: Insulin Aspart 100 Units/ML 3 ML Pen SUBCUT SCH ×3 (07:45→17:12)
[2017-07-16] MEDS: Clopidogrel 75 MG Tab PO SCH (08:01)
[2017-07-16] MEDS: Fluconazole 100 MG Tab PO SCH (08:01)
[2017-07-16] MEDS: DULoxetine 30 MG Cap PO SCH (08:01)
[2017-07-16] MEDS: Oxybutynin 5 MG Tab.ER PO SCH (08:01)
[2017-07-16] MEDS: atorvaSTATin 10 MG Tab PO SCH (08:02)
[2017-07-16] MEDS: Triamcinolone Acetonide 0.1% Crm 15 GM Tube TOP SCH ×2 (08:02→21:40)
[2017-07-16] MEDS: Losartan 25 MG Tab PO SCH (08:02)
[2017-07-16] MEDS: Acetaminophen 325 MG Tab PO PRN ×3 (08:04→22:09)
[2017-07-16] MEDS: Glimepiride 2 MG Tab PO SCH (09:04)
[2017-07-16] MEDS: Insulin Detemir 100 Units/ML 3 ML Pen SUBCUT SCH ×2 (09:05→22:03)
[2017-07-16] MEDS: cefTRIAXone 2 GM Vial IVPUSH SCH (16:00)
[2017-07-17] MEDS: Heparin Sodium 5,000 Units/ML Vial SUBCUT SCH ×3 (05:17→21:01)
[2017-07-17] MEDS: metroNIDAZOLE 250 MG Tab PO SCH ×3 (05:17→21:01)
[2017-07-17] MEDS: Formoterol/Mometasone 200-5 MCG 8.8 GM Inhaler IH SCH ×2 (07:06→17:01)
[2017-07-17] MEDS: Clopidogrel 75 MG Tab PO SCH (08:07)
[2017-07-17] MEDS: Fluconazole 100 MG Tab PO SCH (08:07)
[2017-07-17] MEDS: Insulin Aspart 100 Units/ML 3 ML Pen SUBCUT SCH ×3 (08:07→17:00)
[2017-07-17] MEDS: Oxybutynin 5 MG Tab.ER PO SCH (08:07)
[2017-07-17] MEDS: DULoxetine 30 MG Cap PO SCH (08:07)
[2017-07-17] MEDS: atorvaSTATin 10 MG Tab PO SCH (08:07)
[2017-07-17] MEDS: Losartan 25 MG Tab PO SCH (08:08)
[2017-07-17] MEDS: Triamcinolone Acetonide 0.1% Crm 15 GM Tube TOP SCH ×2 (08:09→21:03)
[2017-07-17] MEDS: Insulin Detemir 100 Units/ML 3 ML Pen SUBCUT SCH ×2 (08:57→21:03)
[2017-07-17] MEDS: Glimepiride 2 MG Tab PO SCH (08:57)
[2017-07-17] MEDS: Acetaminophen 325 MG Tab PO PRN ×2 (09:02→17:00)
[2017-07-17] MEDS: cefTRIAXone 2 GM Vial IVPUSH SCH (15:47)
[2017-07-17] MEDS: Sodium Chloride 0.9% 10 ML Syringe FLUSH PRN (15:47)
[2017-07-17] MEDS ORDERED: OLANZapine 10 MG Vial IM ONE (22:09)
[2017-07-17] MEDS ORDERED: Haloperidol Lactate 5 MG/ML SDV IVPUSH STA (22:52)
[2017-07-18 06:39] LABS: ANION GAP 13.1
[2017-07-18] MEDS: Heparin Sodium 5,000 Units/ML Vial SUBCUT SCH ×4 (08:24→23:25)
[2017-07-18] MEDS: Insulin Aspart 100 Units/ML 3 ML Pen SUBCUT SCH ×3 (08:24→16:59)
[2017-07-18] MEDS: Fluconazole 100 MG Tab PO SCH (08:45)
[2017-07-18] MEDS: atorvaSTATin 10 MG Tab PO SCH (08:45)
[2017-07-18] MEDS: metroNIDAZOLE 250 MG Tab PO SCH ×3 (08:46→22:54)
[2017-07-18] MEDS: DULoxetine 30 MG Cap PO SCH (08:46)
[2017-07-18] MEDS: Glimepiride 2 MG Tab PO SCH (08:46)
[2017-07-18] MEDS: Clopidogrel 75 MG Tab PO SCH (08:46)
[2017-07-18] MEDS: Losartan 25 MG Tab PO SCH (08:46)
[2017-07-18] MEDS: Oxybutynin 5 MG Tab.ER PO SCH (08:47)
[2017-07-18] MEDS: Insulin Detemir 100 Units/ML 3 ML Pen SUBCUT SCH ×2 (08:48→23:27)
[2017-07-18] MEDS: Acetaminophen 325 MG Tab PO PRN ×2 (09:35→23:27)
[2017-07-18] MEDS: Formoterol/Mometasone 200-5 MCG 8.8 GM Inhaler IH SCH ×2 (09:37→17:48)
[2017-07-18] MEDS: Triamcinolone Acetonide 0.1% Crm 15 GM Tube TOP SCH ×2 (11:10→23:23)
--- NOTE | 2017-07-18 14:53 | PCM.PN ---
- General Info Date of Service: 07/18/17 Admission Dx/Problem (Free Text): Admission Diagnosis/Problem Admission Diagnosis/Problem Cellulitis Subjective Update: Patient seen in swingbed setting today. patient has been having episodes of hallucinations. these are worse at night, received zyprexa, haldol prn seems improved Functional Status: Reports: Pain Controlled - Review of Systems General: Denies: Fever Pulmonary: Denies: Shortness of Breath Cardiovascular: Denies: Chest Pain Gastrointestinal: Denies: Abdominal Pain Psychiatric: Reports: Confusion, Hallucinations - Patient Data Vitals - Most Recent: Last Vital Signs Temp 36.7 C 07/18/17 07:56 Pulse 94 07/18/17 07:56 Resp 20 07/18/17 07:56 BP 120/57 L 07/18/17 08:46 Pulse Ox 98 07/18/17 07:56 Weight - Most Recent: 44.361 kg I&O - Last 24 Hours: Intake & Output 07/17/17 07/18/17 07/18/17 22:59 06:59 14:59 Intake Total 240 640 Output Total 200 900 Balance 40 -900 640 Lab Results Last 24 Hours: Laboratory Results - last 24 hr 07/17/17 07/17/17 07/18/17 Range/Units 16:50 21:01 05:50 WBC 6.3 (5.0-10.0) 10^3/uL RBC 2.82 L (4.2-5.4) 10^6/uL Hgb 8.8 L (12.0-16.0) g/dL Hct 27.8 L (37.0-47.0) % MCV 98.6 (80-100) fL MCH 31.2 (27.0-34.0) pg MCHC 31.7 L (33.0-35.0) g/dL Plt Count 338 (150-450) 10^3/uL Neut % (Auto) 34.2 L (42.2-75.2) % Lymph % (Auto) 46.3 (20.5-50.1) % Ogle % (Auto) 11.0 H (2-8) % Eos % (Auto) 8.0 H (1.0-3.0) % Baso % (Auto) 0.5 (0.0-1.0) % ESR 104 H (0-20) mm/hr Sodium (135-145) mmol/L Potassium (3.6-5.0) mmol/L Chloride (101-111) mmol/L Carbon Dioxide (21.0-31.0) mmol/L Anion Gap BUN (7-18) mg/dL Creatinine (0.6-1.3) mg/dL Est Cr Clr Drug Dosing mL/min Estimated GFR (MDRD) Glucose (74-105) mg/dL POC Glucose 192 H 243 H (70-105) mg/dl Calcium (8.4-10.2) mg/dl Total Bilirubin (0.2-1.0) mg/dL Direct Bilirubin (0.0-0.2) mg/dL Indirect Bilirubin AST (10-42) IU/L ALT (10-60) IU/L Alkaline Phosphatase (42-121) IU/L C-Reactive Protein (0.0-1.3) mg/dL Total Protein (6.7-8.2) g/dl Albumin (3.2-5.5) g/dl Globulin Albumin/Globulin Ratio 07/18/17 07/18/17 07/18/17 Range/Units 05:50 05:50 05:50 WBC (5.0-10.0) 10^3/uL RBC (4.2-5.4) 10^6/uL Hgb (12.0-16.0) g/dL Hct (37.0-47.0) % MCV (80-100) fL MCH (27.0-34.0) pg MCHC (33.0-35.0) g/dL Plt Count (150-450) 10^3/uL Neut % (Auto) (42.2-75.2) % Lymph % (Auto) (20.5-50.1) % Ogle % (Auto) (2-8) % Eos % (Auto) (1.0-3.0) % Baso % (Auto) (0.0-1.0) % ESR (0-20) mm/hr Sodium 139 (135-145) mmol/L Potassium 4.1 (3.6-5.0) mmol/L Chloride 108 (101-111) mmol/L Carbon Dioxide 22.0 (21.0-31.0) mmol/L Anion Gap 13.1 BUN 30 H (7-18) mg/dL Creatinine 1.3 (0.6-1.3) mg/dL Est Cr Clr Drug Dosing 29.01 mL/min Estimated GFR (MDRD) 41 Glucose 97 (74-105) mg/dL POC Glucose (70-105) mg/dl Calcium 8.2 L (8.4-10.2) mg/dl Total Bilirubin 0.2 (0.2-1.0) mg/dL Direct Bilirubin < 0.1 (0.0-0.2) mg/dL Indirect Bilirubin 0.54282 AST 154 H (10-42) IU/L ALT 108 H (10-60) IU/L Alkaline Phosphatase 111 (42-121) IU/L C-Reactive Protein 1.1 (0.0-1.3) mg/dL Total Protein 6.8 (6.7-8.2) g/dl Albumin 2.5 L (3.2-5.5) g/dl Globulin 4.3 Albumin/Globulin Ratio 0.58 07/18/17 07/18/17 Range/Units 07:51 11:12 WBC (5.0-10.0) 10^3/uL RBC (4.2-5.4) 10^6/uL Hgb (12.0-16.0) g/dL Hct (37.0-47.0) % MCV (80-100) fL MCH (27.0-34.0) pg MCHC (33.0-35.0) g/dL Plt Count (150-450) 10^3/uL Neut % (Auto) (42.2-75.2) % Lymph % (Auto) (20.5-50.1) % Ogle % (Auto) (2-8) % Eos % (Auto) (1.0-3.0) % Baso % (Auto) (0.0-1.0) % ESR (0-20) mm/hr Sodium (135-145) mmol/L Potassium (3.6-5.0) mmol/L Chloride (101-111) mmol/L Carbon Dioxide (21.0-31.0) mmol/L Anion Gap BUN (7-18) mg/dL Creatinine (0.6-1.3) mg/dL Est Cr Clr Drug Dosing mL/min Estimated GFR (MDRD) Glucose (74-105) mg/dL POC Glucose 61 L 176 H (70-105) mg/dl Calcium (8.4-10.2) mg/dl Total Bilirubin (0.2-1.0) mg/dL Direct Bilirubin (0.0-0.2) mg/dL Indirect Bilirubin AST (10-42) IU/L ALT (10-60) IU/L Alkaline Phosphatase (42-121) IU/L C-Reactive Protein (0.0-1.3) mg/dL Total Protein (6.7-8.2) g/dl Albumin (3.2-5.5) g/dl Globulin Albumin/Globulin Ratio Frankie Results Last 24 Hours: Microbiology 07/14/17 09:30 Stool Culture - Final Other - Stool, Formed NORMAL ENTERIC DENI. NO SALMONELLA, SHIGELLA, CAMPYLOBACTER OR E.COLI O157 ISOLATED. Med Orders - Current: Current Medications Acetaminophen (Tylenol) 650 mg PO Q4H PRN PRN Reason: Pain (Mild 1-3)/fever Last Admin: 07/18/17 09:35 Dose: 650 mg Albuterol (Proventil Hfa) 0 gm INH Q2H PRN PRN Reason: Shortness of Breath Alendronate Sodium (Fosamax) 70 mg PO Q168H [facility] Last Admin: 07/18/17 11:10 Dose: 70 mg Atorvastatin Calcium (Lipitor) 10 mg PO DAILY [facility] Last Admin: 07/18/17 08:45 Dose: 10 mg Ceftriaxone Sodium (Rocephin) 2 gm IVPUSH Q24H [facility] Stop: 07/28/17 16:01 Last Admin: 07/17/17 15:47 Dose: 2 gm Clopidogrel Bisulfate (Plavix) 75 mg PO DAILY [facility] Last Admin: 07/18/17 08:46 Dose: 75 mg Docusate Sodium (Colace) 100 mg PO BID PRN PRN Reason: Constipation Duloxetine HCl (Cymbalta) 30 mg PO DAILY [facility] Last Admin: 07/18/17 08:46 Dose: 30 mg Glimepiride (Amaryl) 2 mg PO DAILY [facility] Last Admin: 07/18/17 08:46 Dose: 2 mg Heparin Sodium (Porcine) (Heparin Sodium) 5,000 units SUBCUT Q8HR [facility] Last Admin: 07/18/17 08:49 Dose: 5,000 units Insulin Aspart (Novolog) 0 unit SUBCUT TIDAC [facility] PRN Reason: Protocol Last Admin: 07/18/17 12:21 Dose: 2 units Insulin Detemir (Levemir) 10 unit SUBCUT BID [facility] Last Admin: 07/18/17 08:48 Dose: 10 units Losartan Potassium (Cozaar) 25 mg PO DAILY [facility] Last Admin: 07/18/17 08:46 Dose: 25 mg Metronidazole (Metronidazole) 500 mg PO Q8HR [facility] Last Admin: 07/18/17 08:46 Dose: 500 mg Mometasone Furoate/Formoterol Fumar (Dulera 200-5 Mcg) 1 puff IH BIDRT [facility] Last Admin: 07/18/17 09:37 Dose: 1 puff Olanzapine (Zyprexa) 5 mg PO BEDTIME [facility] Ondansetron HCl (Zofran Odt) 4 mg PO Q6H PRN PRN Reason: nausea, able to take PO Last Admin: 07/04/17 22:00 Dose: 4 mg Oxybutynin Chloride (Oxybutynin Er) 15 mg PO DAILY [facility] Last Admin: 07/18/17 08:47 Dose: 15 mg Polyethylene Glycol (Miralax) 17 gm PO DAILY PRN PRN Reason: Constipation Sodium Chloride (Saline Flush) 10 ml FLUSH ASDIRECTED PRN PRN Reason: Keep Vein Open Last Admin: 07/17/17 15:47 Dose: 10 ml Triamcinolone Acetonide (Triamcinolone Acetonide 0.1% Crm) 0 gm TOP BID [facility] Last Admin: 07/18/17 11:10 Dose: 1 applic Discontinued Medications Duloxetine HCl (Cymbalta) 60 mg PO DAILY [facility] Last Admin: 07/11/17 16:46 Dose: Not Given Ertapenem (Invanz) 1 gm IVPUSH Q24H [facility] Last Admin: 07/15/17 15:16 Dose: Not Given Fluconazole (Diflucan) 200 mg PO ONETIME ONE Stop: 07/11/17 18:01 Last Admin: 07/11/17 18:03 Dose: 200 mg Fluconazole (Diflucan) 100 mg PO DAILY [facility] Stop: 07/22/17 09:01 Last Admin: 07/18/17 08:45 Dose: 100 mg Haloperidol Lactate (Haldol) 2 mg IM ONETIME ONE Stop: 07/12/17 12:18 Last Admin: 07/12/17 12:49 Dose: 2 mg Haloperidol Lactate (Haldol) 2 mg IVPUSH ONETIME [facility] Stop: 07/17/17 22:53 Last Admin: 07/17/17 23:02 Dose: 2 mg Ceftriaxone Sodium 2 gm/ (Sodium Chloride) 100 mls @ 200 mls/hr IV Q24H [facility] Ertapenem 1 gm/ Sodium (Chloride) 50 mls @ 100 mls/hr IV Q24H [facility] Last Admin: 07/05/17 15:13 Dose: 100 mls/hr Ertapenem 1 gm/ Sodium (Chloride) 50 mls @ 100 mls/hr IV Q24H [facility] Last Admin: 07/12/17 15:28 Dose: 100 mls/hr Dextrose/Sodium Chloride (Dextrose 5%-Normal Saline) 1,000 mls @ 75 mls/hr IV ASDIRECTED [facility] Last Infusion: 07/13/17 21:17 Dose: Infused Insulin Detemir (Levemir) 12 unit SUBCUT BEDTIME [facility] Last Admin: 07/11/17 22:42 Dose: Not Given Lorazepam (Ativan) 1 mg PO ONETIME ONE Stop: 07/12/17 10:01 Last Admin: 07/12/17 10:36 Dose: 1 mg Non-Formulary Medication (Ciprofloxacin [Ciprofloxacin Hcl]) 250 mg PO BID [facility] Non-Formulary Medication (Mirabegron [Myrbetriq]) 50 mg PO DAILY [facility] Last Admin: 07/08/17 18:59 Dose: Not Given Olanzapine (Zyprexa) 5 mg IM ONETIME ONE Stop: 07/14/17 23:27 Last Admin: 07/14/17 23:57 Dose: 5 mg Olanzapine (Zyprexa) 5 mg IM ONETIME ONE Stop: 07/17/17 22:10 Last Admin: 07/17/17 22:28 Dose: 5 mg Ondansetron HCl (Zofran) 4 mg IVPUSH Q6H PRN PRN Reason: Nausea/Vomiting Oxybutynin Chloride (Oxybutynin Er) 10 mg PO DAILY [facility] Polyethylene Glycol (Miralax) 17 gm PO DAILY [facility] Last Admin: 07/10/17 08:37 Dose: Not Given Sertraline HCl (Zoloft) 25 mg PO DAILY [facility] Last Admin: 07/12/17 08:29 Dose: 25 mg Zolpidem Tartrate (Ambien) 5 mg PO BEDTIME PRN PRN Reason: Sleep - Exam General: Alert, Oriented Neck: Supple Lungs: Decreased Breath Sounds Cardiovascular: Regular Rate, Regular Rhythm Extremities: Other (left foot wound vac) - Problem List & Annotations (1) Cellulitis SNOMED Code(s): 142457808 Code(s): L03.90 - CELLULITIS, UNSPECIFIED Status: Acute Current Visit: Yes - Problem List Review Problem List Initiated/Reviewed/Updated: Yes - My Orders Last 24 Hours: My Active Orders 07/18/17 21:00 OLANZapine [ZyPREXA] 5 mg PO BEDTIME - Plan Plan:: The patient is a 66-year-old lady who has a history of diabetes, hypertension, chronic kidney disease, neurogenic bladder status post suprapubic catheter placement. The patient has peripheral artery disease. She was admitted to [facility] with right fifth toe gangrene. The patient was noted to have peripheral artery disease requiring the vascular surgery intervention. The atherectomy and angioplasty. The patient still required a right fifth toe amputation. Subsequently the patient was discharged but she was noted to have wound dehiscence and wound infection. She was readmitted to [facility]. She was seen by ID. Plan was to use IV antibiotics. She was transferred for wound care and IV antibiotic treatment to [facility] bed. 1. Right foot wound dehiscence with wound infection: The patient had wound dehiscence at the fifth toe amputation site and haddrainage and pus drainage on admission, Wound cx was growing Klebsiella pneumoniae, Group A beta Streptococcus (Streptococcus pyogenes). She was on IV vancomycin and Zosyn, ID and Podiatry consulted S/P I&D and wound vac placement, On 07/01, was growing anaerobic organism plan for further IV Abx with Ertapenem was started on Diflucan for yeast uti - finished tx - will stop Follow-up labs are stable 2. Diabetes mellitus type 2: treat with Levemir continue Glimepiride Keep her on sliding scale insulin for correction 3. Acute on chronic renal failure. The patient's baseline creatinine is between 1.1 to 1.3 will monitor periodically 4. Neurogenic bladder, status post suprapubic catheter placement replaced 07/03/17 5. History of hypertension The blood pressure is acceptable Continue to treat with losartan monitor renal fx. tests 6. Peripheral vascular disease, on Plavix. I will continue with that. 7. Acute encephalopathy likely due to hospital related delirium use zyprexa prn 7. DVT prophylaxis with subcutaneous heparin.
[2017-07-18] MEDS: cefTRIAXone 2 GM Vial IVPUSH SCH (16:50)
[2017-07-18] MEDS: Sodium Chloride 0.9% 10 ML Syringe FLUSH PRN (22:29)
[2017-07-18] MEDS: OLANZapine 5 MG Tab PO SCH (22:54)
[2017-07-19] MEDS: Heparin Sodium 5,000 Units/ML Vial SUBCUT SCH ×3 (06:26→21:37)
[2017-07-19] MEDS: metroNIDAZOLE 250 MG Tab PO SCH ×3 (06:27→21:27)
[2017-07-19] MEDS: Acetaminophen 325 MG Tab PO PRN ×2 (08:58→14:15)
[2017-07-19] MEDS: Clopidogrel 75 MG Tab PO SCH (08:59)
[2017-07-19] MEDS: atorvaSTATin 10 MG Tab PO SCH (08:59)
[2017-07-19] MEDS: Oxybutynin 5 MG Tab.ER PO SCH (08:59)
[2017-07-19] MEDS: Glimepiride 2 MG Tab PO SCH (08:59)
[2017-07-19] MEDS: DULoxetine 30 MG Cap PO SCH (09:00)
[2017-07-19] MEDS: Insulin Detemir 100 Units/ML 3 ML Pen SUBCUT SCH ×2 (09:00→21:24)
[2017-07-19] MEDS: Losartan 25 MG Tab PO SCH (09:00)
[2017-07-19] MEDS: Triamcinolone Acetonide 0.1% Crm 15 GM Tube TOP SCH ×2 (09:02→21:31)
[2017-07-19] MEDS: Formoterol/Mometasone 200-5 MCG 8.8 GM Inhaler IH SCH ×2 (09:03→17:16)
[2017-07-19] MEDS: Insulin Aspart 100 Units/ML 3 ML Pen SUBCUT SCH ×3 (09:03→17:15)
[2017-07-19] MEDS: cefTRIAXone 2 GM Vial IVPUSH SCH (16:26)
[2017-07-19] MEDS: OLANZapine 5 MG Tab PO SCH (21:27)
[2017-07-19] MEDS: Sodium Chloride 0.9% 10 ML Syringe FLUSH PRN (21:39)
[2017-07-20] MEDS: Formoterol/Mometasone 200-5 MCG 8.8 GM Inhaler IH SCH ×2 (06:18→17:16)
[2017-07-20] MEDS: metroNIDAZOLE 250 MG Tab PO SCH ×3 (06:18→22:16)
[2017-07-20] MEDS: Heparin Sodium 5,000 Units/ML Vial SUBCUT SCH ×3 (06:18→22:17)
[2017-07-20] MEDS: Insulin Aspart 100 Units/ML 3 ML Pen SUBCUT SCH ×3 (07:59→17:14)
[2017-07-20] MEDS: Acetaminophen 325 MG Tab PO PRN (08:34)
[2017-07-20] MEDS: Glimepiride 2 MG Tab PO SCH (08:35)
[2017-07-20] MEDS: atorvaSTATin 10 MG Tab PO SCH (08:36)
[2017-07-20] MEDS: Losartan 25 MG Tab PO SCH (08:37)
[2017-07-20] MEDS: Clopidogrel 75 MG Tab PO SCH (08:37)
[2017-07-20] MEDS: DULoxetine 30 MG Cap PO SCH (08:37)
[2017-07-20] MEDS: Oxybutynin 5 MG Tab.ER PO SCH (08:37)
[2017-07-20] MEDS: Insulin Detemir 100 Units/ML 3 ML Pen SUBCUT SCH ×2 (08:39→22:23)
[2017-07-20] MEDS: Triamcinolone Acetonide 0.1% Crm 15 GM Tube TOP SCH ×2 (08:41→22:15)
[2017-07-20] MEDS: cefTRIAXone 2 GM Vial IVPUSH SCH (17:16)
[2017-07-20] MEDS: OLANZapine 5 MG Tab PO SCH (22:16)
[2017-07-20] MEDS: Sodium Chloride 0.9% 10 ML Syringe FLUSH PRN (22:22)
[2017-07-21] MEDS: Heparin Sodium 5,000 Units/ML Vial SUBCUT SCH ×3 (05:55→22:05)
[2017-07-21] MEDS: metroNIDAZOLE 250 MG Tab PO SCH ×3 (05:57→22:04)
[2017-07-21] MEDS: Formoterol/Mometasone 200-5 MCG 8.8 GM Inhaler IH SCH ×2 (06:07→17:20)
[2017-07-21] MEDS: Losartan 25 MG Tab PO SCH (08:12)
[2017-07-21] MEDS: atorvaSTATin 10 MG Tab PO SCH (08:12)
[2017-07-21] MEDS: Glimepiride 2 MG Tab PO SCH (08:12)
[2017-07-21] MEDS: DULoxetine 30 MG Cap PO SCH (08:13)
[2017-07-21] MEDS: Clopidogrel 75 MG Tab PO SCH (08:13)
[2017-07-21] MEDS: Oxybutynin 5 MG Tab.ER PO SCH (08:13)
[2017-07-21] MEDS: Insulin Aspart 100 Units/ML 3 ML Pen SUBCUT SCH ×3 (08:14→17:18)
[2017-07-21] MEDS: Insulin Detemir 100 Units/ML 3 ML Pen SUBCUT SCH ×2 (09:32→20:56)
[2017-07-21] MEDS: Triamcinolone Acetonide 0.1% Crm 15 GM Tube TOP SCH ×2 (09:32→20:57)
[2017-07-21] MEDS: cefTRIAXone 2 GM Vial IVPUSH SCH (16:10)
[2017-07-21] MEDS: Sodium Chloride 0.9% 10 ML Syringe FLUSH PRN (16:10)
[2017-07-21] MEDS: OLANZapine 5 MG Tab PO SCH (20:57)
[2017-07-22] MEDS: metroNIDAZOLE 250 MG Tab PO SCH ×3 (06:00→21:59)
[2017-07-22] MEDS: Heparin Sodium 5,000 Units/ML Vial SUBCUT SCH ×3 (06:00→21:58)
[2017-07-22] MEDS: Formoterol/Mometasone 200-5 MCG 8.8 GM Inhaler IH SCH ×2 (07:57→17:20)
[2017-07-22] MEDS: Insulin Aspart 100 Units/ML 3 ML Pen SUBCUT SCH ×3 (08:29→17:19)
[2017-07-22] MEDS: DULoxetine 30 MG Cap PO SCH (09:13)
[2017-07-22] MEDS: Glimepiride 2 MG Tab PO SCH (09:13)
[2017-07-22] MEDS: Losartan 25 MG Tab PO SCH (09:14)
[2017-07-22] MEDS: atorvaSTATin 10 MG Tab PO SCH (09:14)
[2017-07-22] MEDS: Clopidogrel 75 MG Tab PO SCH (09:14)
[2017-07-22] MEDS: Oxybutynin 5 MG Tab.ER PO SCH (09:14)
[2017-07-22] MEDS: Insulin Detemir 100 Units/ML 3 ML Pen SUBCUT SCH ×2 (09:15→20:54)
[2017-07-22] MEDS: Triamcinolone Acetonide 0.1% Crm 15 GM Tube TOP SCH ×2 (09:20→20:51)
[2017-07-22] MEDS: cefTRIAXone 2 GM Vial IVPUSH SCH (15:38)
[2017-07-22] MEDS: Sodium Chloride 0.9% 10 ML Syringe FLUSH PRN (15:38)
[2017-07-22] MEDS: OLANZapine 5 MG Tab PO SCH (20:54)
[2017-07-23] MEDS: metroNIDAZOLE 250 MG Tab PO SCH ×3 (06:26→21:52)
[2017-07-23] MEDS: Heparin Sodium 5,000 Units/ML Vial SUBCUT SCH ×3 (06:27→21:52)
[2017-07-23] MEDS: Formoterol/Mometasone 200-5 MCG 8.8 GM Inhaler IH SCH ×2 (08:50→17:19)
[2017-07-23] MEDS: Insulin Aspart 100 Units/ML 3 ML Pen SUBCUT SCH ×3 (08:52→17:18)
[2017-07-23] MEDS: Glimepiride 2 MG Tab PO SCH (08:52)
[2017-07-23] MEDS: Losartan 25 MG Tab PO SCH (08:52)
[2017-07-23] MEDS: Oxybutynin 5 MG Tab.ER PO SCH (08:53)
[2017-07-23] MEDS: atorvaSTATin 10 MG Tab PO SCH (08:53)
[2017-07-23] MEDS: DULoxetine 30 MG Cap PO SCH (08:53)
[2017-07-23] MEDS: Clopidogrel 75 MG Tab PO SCH (08:54)
[2017-07-23] MEDS: Insulin Detemir 100 Units/ML 3 ML Pen SUBCUT SCH ×2 (08:56→20:53)
[2017-07-23] MEDS: Triamcinolone Acetonide 0.1% Crm 15 GM Tube TOP SCH ×2 (09:30→20:53)
--- NOTE | 2017-07-23 12:14 | PN ---
DATE: 07/23/2017 SUBJECTIVE: Ms. Memo Griffin is a 66-year-old female with medical history significant for hypertension, type 2 diabetes mellitus, chronic kidney disease, neurogenic bladder status post suprapubic catheter placement, peripheral arterial disease, admitted with right 5th toe gangrene, and the patient is status post atherectomy and angioplasty and status post right 5th toe amputation. The patient is currently in swing bed, receiving IV antibiotics and wound VAC in place. For the last 24 hours, the patient does have episodes of confusion at nights. She did not take her Levemir last night. She denies any chest pain. No shortness of breath. No abdominal pain. No nausea. No vomiting. No diarrhea. She complains of having mild pain in the right foot site. REVIEW OF SYSTEMS: Cardiovascular, Respiratory, Gastrointestinal, Neurology, Constitutional were all evaluated. PHYSICAL EXAMINATION: Vital Signs: Temperature of 97.8, pulse of 96, blood pressure of 113/72, respiratory rate of 20, saturating at 99% on room air. General Appearance: The patient is well oriented to time, place, and person. Follows commands spontaneously. Cardiovascular System: S1 and S2 heard with normal intensity. No gallops. Respiratory System: Clear to auscultation bilaterally. No wheeze. No crepitations. Abdomen: Soft. Bowel sounds positive. Nontender. No rigidity. Extremities: No edema in bilateral lower extremities. Wound dressing noted on the right foot along with the wound VAC in place. LABORATORY DATA: No new labs ordered for today. MEDICATIONS: Continue with: 1. Tylenol 650 every 4 hours as needed for pain. 2. Lipitor 10 mg daily. 3. Ceftriaxone 2 g IV daily. 4. Plavix 75 mg daily. 5. Docusate sodium 100 mg twice a day. 6. Amaryl 2 mg daily. 7. Cymbalta 30 mg daily. 8. Heparin 5000 subcutaneously q.8 hourly. 9. NovoLog supplemental scale. 10.Levemir 15 units twice a day. 11.Cozaar 25 mg daily. 12.Metronidazole 500 mg oral every 8 hours. 13.Zyprexa 5 mg at bedtime. 14.Oxybutynin 15 mg daily. ASSESSMENT: 1. Right foot wound, requiring wound debridement and toe amputation, currently on wound VAC. 2. Hypertension. 3. Type 2 diabetes mellitus. 4. Hyperlipidemia. 5. [id number] renal failure. 6. Neurogenic bladder. 7. Peripheral vascular disease. 8. Acute encephalopathy. PLAN: 1. Right foot wound: The patient is currently on IV and oral antibiotics, ceftriaxone and metronidazole. Continue the same. Follow with ID recommendation. The patient remains afebrile at this time. Continue with wound VAC. Continue with wound dressing changes as prescribed. 2. Type 2 diabetes mellitus: The patient is noted to be on insulin regimen. Continue the same. Check her fingersticks with each meals. Have her on supplemental scale insulin as needed. Try to avoid any hypoglycemic episodes. 3. Yhqll-we-dmjqbep renal failure: The patient was noted to have elevated creatinine. We will recheck a basic metabolic panel in the a.m. Avoid any nephrotoxic agents. Dose adjust medications for renal function. 4. Neurogenic bladder: Status post suprapubic catheter placed. 5. Peripheral vascular disease: The patient underwent angioplasty and is currently on Plavix; continue the same. 6. Acute encephalopathy: The patient does have underlying possible dementia and has sundowning at times. She is currently on Zyprexa, which seems to be improving her symptoms. Continue Zyprexa. 7. DVT prophylaxis: Continue with heparin. 8. Continue physical therapy and occupational therapy while in the swing bed. [facility] /[id number]
[2017-07-23] MEDS: Sodium Chloride 0.9% 10 ML Syringe FLUSH PRN (14:33)
[2017-07-23] MEDS: cefTRIAXone 2 GM Vial IVPUSH SCH (17:20)
[2017-07-23] MEDS: OLANZapine 5 MG Tab PO SCH (20:49)
[2017-07-24] MEDS: metroNIDAZOLE 250 MG Tab PO SCH ×3 (06:02→21:18)
[2017-07-24] MEDS: Heparin Sodium 5,000 Units/ML Vial SUBCUT SCH ×3 (06:03→21:18)
[2017-07-24 07:14] LABS: ANION GAP 10.9
[2017-07-24] MEDS: Formoterol/Mometasone 200-5 MCG 8.8 GM Inhaler IH SCH ×2 (08:28→17:35)
[2017-07-24] MEDS: Glimepiride 2 MG Tab PO SCH (08:29)
[2017-07-24] MEDS: Losartan 25 MG Tab PO SCH (08:31)
[2017-07-24] MEDS: DULoxetine 30 MG Cap PO SCH (08:31)
[2017-07-24] MEDS: atorvaSTATin 10 MG Tab PO SCH (08:32)
[2017-07-24] MEDS: Insulin Detemir 100 Units/ML 3 ML Pen SUBCUT SCH ×2 (08:32→21:18)
[2017-07-24] MEDS: Oxybutynin 5 MG Tab.ER PO SCH (08:33)
[2017-07-24] MEDS: Triamcinolone Acetonide 0.1% Crm 15 GM Tube TOP SCH ×2 (08:34→21:19)
[2017-07-24] MEDS: Clopidogrel 75 MG Tab PO SCH (08:34)
[2017-07-24] MEDS: Insulin Aspart 100 Units/ML 3 ML Pen SUBCUT SCH ×3 (08:37→17:35)
[2017-07-24] MEDS: Sodium Chloride 0.9% 10 ML Syringe FLUSH PRN (15:32)
[2017-07-24] MEDS: cefTRIAXone 2 GM Vial IVPUSH SCH (15:33)
[2017-07-24] MEDS: OLANZapine 5 MG Tab PO SCH (21:18)
[2017-07-25] MEDS: metroNIDAZOLE 250 MG Tab PO SCH ×3 (05:51→22:25)
[2017-07-25] MEDS: Heparin Sodium 5,000 Units/ML Vial SUBCUT SCH ×3 (05:51→22:24)
[2017-07-25] MEDS: Formoterol/Mometasone 200-5 MCG 8.8 GM Inhaler IH SCH ×2 (09:32→17:52)
[2017-07-25] MEDS: Oxybutynin 5 MG Tab.ER PO SCH (09:34)
[2017-07-25] MEDS: Glimepiride 2 MG Tab PO SCH (09:34)
[2017-07-25] MEDS: atorvaSTATin 10 MG Tab PO SCH (09:34)
[2017-07-25] MEDS: Losartan 25 MG Tab PO SCH (09:35)
[2017-07-25] MEDS: Clopidogrel 75 MG Tab PO SCH (09:35)
[2017-07-25] MEDS: DULoxetine 30 MG Cap PO SCH (09:35)
[2017-07-25] MEDS: Insulin Detemir 100 Units/ML 3 ML Pen SUBCUT SCH ×2 (09:37→21:09)
[2017-07-25] MEDS: Insulin Aspart 100 Units/ML 3 ML Pen SUBCUT SCH ×3 (09:38→17:15)
[2017-07-25] MEDS: Triamcinolone Acetonide 0.1% Crm 15 GM Tube TOP SCH ×2 (09:42→21:12)
[2017-07-25] MEDS: cefTRIAXone 2 GM Vial IVPUSH SCH (16:06)
[2017-07-25] MEDS: Sodium Chloride 0.9% 10 ML Syringe FLUSH PRN (16:07)
[2017-07-25] MEDS: OLANZapine 5 MG Tab PO SCH (21:11)
[2017-07-26] MEDS: Heparin Sodium 5,000 Units/ML Vial SUBCUT SCH ×3 (06:10→21:51)
[2017-07-26] MEDS: metroNIDAZOLE 250 MG Tab PO SCH ×3 (06:10→21:50)
[2017-07-26] MEDS: Insulin Aspart 100 Units/ML 3 ML Pen SUBCUT SCH ×3 (08:42→17:04)
[2017-07-26] MEDS: Formoterol/Mometasone 200-5 MCG 8.8 GM Inhaler IH SCH ×2 (08:44→17:30)
[2017-07-26] MEDS: atorvaSTATin 10 MG Tab PO SCH (08:45)
[2017-07-26] MEDS: Glimepiride 2 MG Tab PO SCH (08:45)
[2017-07-26] MEDS: Clopidogrel 75 MG Tab PO SCH (08:45)
[2017-07-26] MEDS: Triamcinolone Acetonide 0.1% Crm 15 GM Tube TOP SCH ×2 (08:45→20:40)
[2017-07-26] MEDS: Losartan 25 MG Tab PO SCH (08:45)
[2017-07-26] MEDS: Oxybutynin 5 MG Tab.ER PO SCH (08:45)
[2017-07-26] MEDS: DULoxetine 30 MG Cap PO SCH (08:45)
[2017-07-26] MEDS: Insulin Detemir 100 Units/ML 3 ML Pen SUBCUT SCH ×2 (08:46→21:31)
[2017-07-26] MEDS: Acetaminophen 325 MG Tab PO PRN (13:28)
--- NOTE | 2017-07-26 15:27 | PN ---
DATE: 07/26/2017 HISTORY OF PRESENT ILLNESS: Mrs. Memo Grififn is a 66-year-old female with medical history significant for hypertension, type 2 diabetes mellitus, chronic kidney disease, neurogenic bladder, status post suprapubic catheter placement, peripheral arterial disease, admitted with right foot wound. She was noted to have a right 5th toe gangrene and underwent 5th ray amputation. She also underwent arthrotomy and angioplasty. The patient is currently in swing bed receiving IV antibiotics and wound VAC and wound cares with continued physical therapy and occupational therapy. For the last 24 hours, the patient continues to have mild pain at the wound site which is at the right leg, 3 to 4/10 in intensity, aggravated on ambulation, relieved with rest and pain medication, not associated with any chest pains. Denies any chest pain. No shortness of breath. No abdominal pain. No nausea. No vomiting. No diarrhea. REVIEW OF SYSTEMS: Cardiovascular, respiratory, gastrointestinal, neurology, constitutional were all evaluated. PHYSICAL EXAMINATION: Vital Signs: Temperature of 97.7, pulse of 88, blood pressure 121/78, respiratory rate of 20, saturating at 100% on room air. General Appearance: The patient is well oriented to time, place, and person. Follows commands spontaneously. Cardiovascular System: S1, S2 heard with normal intensity. No gallops. Respiratory System: Clear to auscultation bilaterally. No wheeze. No crepitations. Abdomen: Soft. Bowel sounds positive. Nontender. No rigidity. Extremities: No edema in bilateral lower extremities. Wound VAC to the right lower extremity. MEDICATIONS: Reviewed. Continue with; 1. Tylenol 650 every 4 hours as needed for pain. 2. Albuterol inhalation as needed. 3. Lipitor 10 mg daily. 4. Ceftriaxone 2 g IV daily. 5. Plavix 75 mg daily. 6. Colace 100 mg twice a day. 7. Cymbalta 30 mg daily. 8. Amaryl 2 mg daily. 9. Heparin 5000 subcutaneous q.8 hourly. 10.NovoLog supplemental scale. 11.Levemir 15 units subcu twice a day. 12.Cozaar 25 mg daily. 13.Metronidazole 500 mg oral q.8 hourly. 14.Zyprexa 5 mg at bedtime. 15.Oxybutynin 15 mg daily. LABORATORY DATA: No new labs ordered for today. Labs from 07/24 are within normal limits. ASSESSMENT: 1. Right foot wound with right toe gangrene, status post amputation and currently on wound VAC. 2. Hypertension. 3. Type 2 diabetes mellitus. 4. Hyperlipidemia. 5. Acute on chronic renal failure, resolved. 6. Neurogenic bladder. 7. Peripheral vascular disease. 8. Acute encephalopathy, resolved. PLAN: 1. Right foot wound. The patient had gangrenous toe, requiring amputation and wound VAC in place. Continue the same. Continue with pain medications for better pain control. Continue with current IV antibiotic ceftriaxone and also Metronidazole oral. Closely follow the patient. 2. Type 2 diabetes mellitus. Blood sugars are in acceptable range. Continue with current treatment plan. Check her fingersticks with each meals. Have her on supplemental scale insulin as needed for additional coverage of her blood glucose. Try to avoid any hypoglycemic episodes. Have her on hypoglycemic protocol. 3. Hypertension. The patient is currently on Cozaar, continue the same. 4. Deep vein thrombosis prophylaxis. Continue with heparin for deep vein thrombosis prophylaxis. 5. Acute on chronic renal failure, resolved. The patient's creatinine is back to baseline function. Avoid any nephrotoxic agents. Dose adjust medications for renal function. 6. Acute encephalopathy, resolved. The patient appears to be more stable. Continue with Zyprexa at night. [facility] /[id number]
[2017-07-26] MEDS: cefTRIAXone 2 GM Vial IVPUSH SCH (16:05)
[2017-07-26] MEDS: OLANZapine 5 MG Tab PO SCH (20:39)
[2017-07-27] MEDS: metroNIDAZOLE 250 MG Tab PO SCH ×3 (06:09→22:23)
[2017-07-27] MEDS: Heparin Sodium 5,000 Units/ML Vial SUBCUT SCH ×3 (06:10→22:22)
[2017-07-27] MEDS: Insulin Aspart 100 Units/ML 3 ML Pen SUBCUT SCH ×3 (10:45→17:52)
[2017-07-27] MEDS: Formoterol/Mometasone 200-5 MCG 8.8 GM Inhaler IH SCH ×2 (10:45→17:51)
[2017-07-27] MEDS: Glimepiride 2 MG Tab PO SCH (10:46)
[2017-07-27] MEDS: Oxybutynin 5 MG Tab.ER PO SCH (10:46)
[2017-07-27] MEDS: Triamcinolone Acetonide 0.1% Crm 15 GM Tube TOP SCH ×2 (10:47→21:29)
[2017-07-27] MEDS: DULoxetine 30 MG Cap PO SCH (10:47)
[2017-07-27] MEDS: Losartan 25 MG Tab PO SCH (10:47)
[2017-07-27] MEDS: atorvaSTATin 10 MG Tab PO SCH (10:47)
[2017-07-27] MEDS: Clopidogrel 75 MG Tab PO SCH (10:47)
[2017-07-27] MEDS: Insulin Detemir 100 Units/ML 3 ML Pen SUBCUT SCH ×2 (10:50→21:27)
[2017-07-27] MEDS: cefTRIAXone 2 GM Vial IVPUSH SCH (15:38)
[2017-07-27] MEDS: Sodium Chloride 0.9% 10 ML Syringe FLUSH PRN (15:38)
[2017-07-27] MEDS: OLANZapine 5 MG Tab PO SCH (20:38)
[2017-07-28] MEDS: metroNIDAZOLE 250 MG Tab PO SCH ×3 (05:58→22:09)
[2017-07-28] MEDS: Heparin Sodium 5,000 Units/ML Vial SUBCUT SCH ×3 (05:59→22:08)
[2017-07-28] MEDS: Formoterol/Mometasone 200-5 MCG 8.8 GM Inhaler IH SCH ×2 (09:15→17:46)
[2017-07-28] MEDS: Insulin Detemir 100 Units/ML 3 ML Pen SUBCUT SCH ×2 (09:16→21:27)
[2017-07-28] MEDS: Losartan 25 MG Tab PO SCH (09:18)
[2017-07-28] MEDS: DULoxetine 30 MG Cap PO SCH (09:18)
[2017-07-28] MEDS: Glimepiride 2 MG Tab PO SCH (09:18)
[2017-07-28] MEDS: Oxybutynin 5 MG Tab.ER PO SCH (09:18)
[2017-07-28] MEDS: Triamcinolone Acetonide 0.1% Crm 15 GM Tube TOP SCH ×2 (09:18→20:44)
[2017-07-28] MEDS: Clopidogrel 75 MG Tab PO SCH (09:18)
[2017-07-28] MEDS: Insulin Aspart 100 Units/ML 3 ML Pen SUBCUT SCH ×3 (09:18→17:46)
[2017-07-28] MEDS: atorvaSTATin 10 MG Tab PO SCH (09:18)
[2017-07-28] MEDS: cefTRIAXone 2 GM Vial IVPUSH SCH (15:44)
[2017-07-28] MEDS: Sodium Chloride 0.9% 10 ML Syringe FLUSH PRN (15:44)
[2017-07-28] MEDS: OLANZapine 5 MG Tab PO SCH (20:38)
[2017-07-29] MEDS: metroNIDAZOLE 250 MG Tab PO SCH ×3 (06:01→22:57)
[2017-07-29] MEDS: Heparin Sodium 5,000 Units/ML Vial SUBCUT SCH ×3 (06:02→22:57)
[2017-07-29] MEDS: Insulin Aspart 100 Units/ML 3 ML Pen SUBCUT SCH ×3 (08:02→17:44)
[2017-07-29] MEDS: Insulin Detemir 100 Units/ML 3 ML Pen SUBCUT SCH ×2 (08:52→22:58)
[2017-07-29] MEDS: Formoterol/Mometasone 200-5 MCG 8.8 GM Inhaler IH SCH ×2 (08:52→17:43)
[2017-07-29] MEDS: Glimepiride 2 MG Tab PO SCH (08:53)
[2017-07-29] MEDS: DULoxetine 30 MG Cap PO SCH (08:53)
[2017-07-29] MEDS: Triamcinolone Acetonide 0.1% Crm 15 GM Tube TOP SCH ×2 (08:53→22:59)
[2017-07-29] MEDS: atorvaSTATin 10 MG Tab PO SCH (08:53)
[2017-07-29] MEDS: Clopidogrel 75 MG Tab PO SCH (08:53)
[2017-07-29] MEDS: Oxybutynin 5 MG Tab.ER PO SCH (08:53)
[2017-07-29] MEDS: Losartan 25 MG Tab PO SCH (08:53)
[2017-07-29] MEDS: OLANZapine 5 MG Tab PO SCH (22:58)
[2017-07-30] MEDS: metroNIDAZOLE 250 MG Tab PO SCH ×3 (06:34→21:38)
[2017-07-30] MEDS: Heparin Sodium 5,000 Units/ML Vial SUBCUT SCH ×3 (06:35→21:31)
[2017-07-30] MEDS: Insulin Aspart 100 Units/ML 3 ML Pen SUBCUT SCH ×3 (09:31→17:22)
[2017-07-30] MEDS: Clopidogrel 75 MG Tab PO SCH (09:43)
[2017-07-30] MEDS: Glimepiride 2 MG Tab PO SCH (09:43)
[2017-07-30] MEDS: atorvaSTATin 10 MG Tab PO SCH (09:44)
[2017-07-30] MEDS: Oxybutynin 5 MG Tab.ER PO SCH (09:44)
[2017-07-30] MEDS: Losartan 25 MG Tab PO SCH (09:45)
[2017-07-30] MEDS: Insulin Detemir 100 Units/ML 3 ML Pen SUBCUT SCH ×2 (09:47→21:32)
[2017-07-30] MEDS: DULoxetine 30 MG Cap PO SCH (09:47)
[2017-07-30] MEDS: Formoterol/Mometasone 200-5 MCG 8.8 GM Inhaler IH SCH ×2 (09:54→17:39)
[2017-07-30] MEDS: Triamcinolone Acetonide 0.1% Crm 15 GM Tube TOP SCH ×2 (09:57→21:34)
[2017-07-30] MEDS: OLANZapine 5 MG Tab PO SCH (21:32)
[2017-07-31] MEDS: Heparin Sodium 5,000 Units/ML Vial SUBCUT SCH ×3 (06:45→21:02)
[2017-07-31] MEDS: metroNIDAZOLE 250 MG Tab PO SCH ×3 (06:45→21:13)
[2017-07-31] MEDS: Insulin Aspart 100 Units/ML 3 ML Pen SUBCUT SCH ×3 (08:14→17:15)
[2017-07-31] MEDS: Oxybutynin 5 MG Tab.ER PO SCH (09:53)
[2017-07-31] MEDS: Losartan 25 MG Tab PO SCH (09:53)
[2017-07-31] MEDS: Glimepiride 2 MG Tab PO SCH (09:53)
[2017-07-31] MEDS: atorvaSTATin 10 MG Tab PO SCH (09:55)
[2017-07-31] MEDS: DULoxetine 30 MG Cap PO SCH (09:55)
[2017-07-31] MEDS: Clopidogrel 75 MG Tab PO SCH (09:55)
[2017-07-31] MEDS: Formoterol/Mometasone 200-5 MCG 8.8 GM Inhaler IH SCH ×2 (09:56→17:43)
[2017-07-31] MEDS: Insulin Detemir 100 Units/ML 3 ML Pen SUBCUT SCH ×2 (09:56→21:00)
[2017-07-31] MEDS: Triamcinolone Acetonide 0.1% Crm 15 GM Tube TOP SCH ×2 (13:44→21:01)
[2017-07-31] MEDS: OLANZapine 5 MG Tab PO SCH (21:01)
[2017-08-01] MEDS: Formoterol/Mometasone 200-5 MCG 8.8 GM Inhaler IH SCH ×2 (06:07→18:22)
[2017-08-01] MEDS: Heparin Sodium 5,000 Units/ML Vial SUBCUT SCH ×3 (06:10→21:27)
[2017-08-01] MEDS: metroNIDAZOLE 250 MG Tab PO SCH ×3 (06:39→21:28)
[2017-08-01] MEDS: Insulin Aspart 100 Units/ML 3 ML Pen SUBCUT SCH ×3 (07:55→17:24)
[2017-08-01] MEDS: Oxybutynin 5 MG Tab.ER PO SCH (08:20)
[2017-08-01] MEDS: Glimepiride 2 MG Tab PO SCH (08:21)
[2017-08-01] MEDS: Clopidogrel 75 MG Tab PO SCH (08:21)
[2017-08-01] MEDS: DULoxetine 30 MG Cap PO SCH (08:21)
[2017-08-01] MEDS: Losartan 25 MG Tab PO SCH (08:21)
[2017-08-01] MEDS: atorvaSTATin 10 MG Tab PO SCH (08:21)
[2017-08-01] MEDS: Insulin Detemir 100 Units/ML 3 ML Pen SUBCUT SCH ×2 (08:22→20:51)
[2017-08-01] MEDS: Triamcinolone Acetonide 0.1% Crm 15 GM Tube TOP SCH (08:23)
[2017-08-01] MEDS: Acetaminophen 325 MG Tab PO PRN (18:22)
[2017-08-01] MEDS ORDERED: Simethicone 80 MG Tab.Chew PO PRN (19:41)
[2017-08-01] MEDS ORDERED: Calcium Carbonate 500 MG Tab.Chew PO PRN (19:42)
[2017-08-01] MEDS: OLANZapine 5 MG Tab PO SCH ×2 (19:52→20:06)
[2017-08-01] MEDS: Acetaminophen/HYDROcodone 325-10 MG Tab PO PRN (19:53)
[2017-08-02] MEDS ORDERED: Clopidogrel 75 MG Tab PO ONE (09:00)
[2017-08-02] MEDS ORDERED: Glimepiride 2 MG Tab PO ONE (09:00)
[2017-08-02] MEDS: Heparin Sodium 5,000 Units/ML Vial SUBCUT SCH ×3 (13:31→23:11)
[2017-08-02] MEDS: Formoterol/Mometasone 200-5 MCG 8.8 GM Inhaler IH SCH ×2 (13:32→18:37)
[2017-08-02] MEDS: Insulin Aspart 100 Units/ML 3 ML Pen SUBCUT SCH ×3 (13:32→18:36)
[2017-08-02] MEDS: Losartan 25 MG Tab PO SCH (13:33)
[2017-08-02] MEDS: Glimepiride 2 MG Tab PO SCH (13:33)
[2017-08-02] MEDS: Insulin Detemir 100 Units/ML 3 ML Pen SUBCUT SCH ×2 (13:34→23:10)
[2017-08-02] MEDS: DULoxetine 30 MG Cap PO SCH (13:34)
[2017-08-02] MEDS: atorvaSTATin 10 MG Tab PO SCH (13:39)
[2017-08-02] MEDS: Clopidogrel 75 MG Tab PO SCH (13:39)
[2017-08-02] MEDS: Oxybutynin 5 MG Tab.ER PO SCH (13:39)
[2017-08-02] MEDS: metroNIDAZOLE 250 MG Tab PO SCH ×3 (14:29→23:11)
[2017-08-02] MEDS: cefTRIAXone 2 GM Vial IVPUSH SCH (14:30)
[2017-08-02] MEDS: Acetaminophen 325 MG Tab PO PRN (16:49)
[2017-08-02] MEDS: OLANZapine 5 MG Tab PO SCH (23:11)
[2017-08-03] MEDS: Heparin Sodium 5,000 Units/ML Vial SUBCUT SCH ×3 (05:46→21:00)
[2017-08-03] MEDS: metroNIDAZOLE 250 MG Tab PO SCH ×3 (05:46→21:02)
[2017-08-03] MEDS: Acetaminophen 325 MG Tab PO PRN (10:00)
[2017-08-03] MEDS: Oxybutynin 5 MG Tab.ER PO SCH (10:02)
[2017-08-03] MEDS: atorvaSTATin 10 MG Tab PO SCH (10:03)
[2017-08-03] MEDS: DULoxetine 30 MG Cap PO SCH (10:04)
[2017-08-03] MEDS: Clopidogrel 75 MG Tab PO SCH (10:04)
[2017-08-03] MEDS: Losartan 25 MG Tab PO SCH (10:05)
[2017-08-03] MEDS: Glimepiride 2 MG Tab PO SCH (10:05)
[2017-08-03] MEDS: Insulin Aspart 100 Units/ML 3 ML Pen SUBCUT SCH ×3 (10:06→17:07)
[2017-08-03] MEDS: Insulin Detemir 100 Units/ML 3 ML Pen SUBCUT SCH ×2 (10:06→20:58)
[2017-08-03] MEDS: Formoterol/Mometasone 200-5 MCG 8.8 GM Inhaler IH SCH ×2 (10:06→17:55)
[2017-08-03] MEDS: cefTRIAXone 2 GM Vial IVPUSH SCH (14:39)
[2017-08-03] MEDS: Acetaminophen/HYDROcodone 325-10 MG Tab PO PRN (14:41)
[2017-08-03] MEDS: Sodium Chloride 0.9% 10 ML Syringe FLUSH PRN (14:43)
[2017-08-03] MEDS ORDERED: Acetaminophen/HYDROcodone 325-10 MG Tab PO PRN (15:04)
[2017-08-03] MEDS: OLANZapine 5 MG Tab PO SCH (20:58)
[2017-08-04] MEDS: Heparin Sodium 5,000 Units/ML Vial SUBCUT SCH ×3 (05:00→21:31)
[2017-08-04] MEDS: metroNIDAZOLE 250 MG Tab PO SCH ×3 (05:44→21:29)
[2017-08-04] MEDS: Formoterol/Mometasone 200-5 MCG 8.8 GM Inhaler IH SCH ×2 (08:20→17:03)
[2017-08-04] MEDS: Insulin Detemir 100 Units/ML 3 ML Pen SUBCUT SCH ×2 (08:21→21:29)
[2017-08-04] MEDS: atorvaSTATin 10 MG Tab PO SCH (08:21)
[2017-08-04] MEDS: Losartan 25 MG Tab PO SCH (08:21)
[2017-08-04] MEDS: Clopidogrel 75 MG Tab PO SCH (08:21)
[2017-08-04] MEDS: DULoxetine 30 MG Cap PO SCH (08:22)
[2017-08-04] MEDS: Insulin Aspart 100 Units/ML 3 ML Pen SUBCUT SCH ×3 (08:22→17:03)
[2017-08-04] MEDS: Glimepiride 2 MG Tab PO SCH (08:22)
--- NOTE | 2017-08-04 09:07 | PCM.PN ---
- General Info Date of Service: 08/04/17 Admission Dx/Problem (Free Text): Admission Diagnosis/Problem Admission Diagnosis/Problem Cellulitis Subjective Update: patient states that she is feeling better and had no complaints. she states that her right foot pain improved. her wound vac was changed yesterday and nurse had no concerns about the wound. Patient denies fever, chills, nausea, vomiting, chest pain, shortness breath, palpitation, abdominal pain, diarrhea, urinary symptoms, lower extremity edema, any other symptoms or concern. Patient is having regular bowel movements. - Patient Data Vitals - Most Recent: Last Vital Signs Temp 36.6 C 08/04/17 07:49 Pulse 97 08/04/17 07:49 Resp 20 08/04/17 07:49 BP 110/67 08/04/17 07:49 Pulse Ox 100 08/04/17 07:49 Weight - Most Recent: 44.18 kg I&O - Last 24 Hours: Intake & Output 08/03/17 08/04/17 08/04/17 22:59 06:59 14:59 Intake Total 400 240 705 Output Total 100 850 300 Balance 300 -610 405 Lab Results Last 24 Hours: Laboratory Results - last 24 hr 08/03/17 08/03/17 08/03/17 Range/Units 10:57 16:43 20:38 POC Glucose 220 H 75 223 H (70-105) mg/dl 08/04/17 Range/Units 05:47 POC Glucose 83 (70-105) mg/dl Med Orders - Current: Current Medications Acetaminophen (Tylenol) 650 mg PO Q4H PRN PRN Reason: Pain (Mild 1-3)/fever Last Admin: 08/03/17 10:00 Dose: 650 mg Hydrocodone Bitart/Acetaminophen (Shelbina 325-10 Mg) 0.5 tab PO Q8H PRN PRN Reason: Pain Albuterol (Proventil Hfa) 0 gm INH Q2H PRN PRN Reason: Shortness of Breath Alendronate Sodium (Fosamax) 70 mg PO Q168H [facility] Last Admin: 08/01/17 06:08 Dose: 70 mg Atorvastatin Calcium (Lipitor) 10 mg PO DAILY [facility] Last Admin: 08/04/17 08:21 Dose: 10 mg Calcium Carbonate/Glycine (Tums) 1,000 mg PO Q8H PRN PRN Reason: Abdominal Pain Ceftriaxone Sodium (Rocephin) 2 gm IVPUSH Q24H [facility] Stop: 08/15/17 14:01 Last Admin: 08/03/17 14:39 Dose: 2 gm Clopidogrel Bisulfate (Plavix) 75 mg PO DAILY [facility] Last Admin: 08/04/17 08:21 Dose: 75 mg Docusate Sodium (Colace) 100 mg PO BID PRN PRN Reason: Constipation Duloxetine HCl (Cymbalta) 30 mg PO DAILY [facility] Last Admin: 08/04/17 08:22 Dose: 30 mg Glimepiride (Amaryl) 2 mg PO DAILY [facility] Last Admin: 08/04/17 08:22 Dose: 2 mg Heparin Sodium (Porcine) (Heparin Sodium) 5,000 units SUBCUT Q8HR [facility] Last Admin: 08/04/17 05:00 Dose: Not Given Insulin Aspart (Novolog) 0 unit SUBCUT TIDAC [facility] PRN Reason: Protocol Last Admin: 08/04/17 08:22 Dose: Not Given Insulin Detemir (Levemir) 15 unit SUBCUT BID [facility] Last Admin: 08/04/17 08:21 Dose: 15 units Losartan Potassium (Cozaar) 25 mg PO DAILY [facility] Last Admin: 08/04/17 08:21 Dose: 25 mg Metronidazole (Metronidazole) 500 mg PO Q8HR [facility] Last Admin: 08/04/17 05:44 Dose: 500 mg Mometasone Furoate/Formoterol Fumar (Dulera 200-5 Mcg) 1 puff IH BIDRT [facility] Last Admin: 08/04/17 08:20 Dose: 1 puff Olanzapine (Zyprexa) 5 mg PO BEDTIME [facility] Last Admin: 08/03/17 20:58 Dose: 5 mg Ondansetron HCl (Zofran Odt) 4 mg PO Q6H PRN PRN Reason: nausea, able to take PO Last Admin: 07/04/17 22:00 Dose: 4 mg Oxybutynin Chloride (Oxybutynin Er) 15 mg PO DAILY [facility] Last Admin: 08/03/17 10:02 Dose: 15 mg Polyethylene Glycol (Miralax) 17 gm PO DAILY PRN PRN Reason: Constipation Simethicone (Simethicone) 80 mg PO Q8H PRN PRN Reason: Abdominal Pain Last Admin: 08/01/17 19:52 Dose: 80 mg Sodium Chloride (Saline Flush) 10 ml FLUSH ASDIRECTED PRN PRN Reason: Keep Vein Open Last Admin: 08/03/17 14:43 Dose: 10 ml Discontinued Medications Hydrocodone Bitart/Acetaminophen (Shelbina 325-10 Mg) 0.5 tab PO Q8H PRN PRN Reason: Pain Last Admin: 08/03/17 14:41 Dose: 0.5 tab Ceftriaxone Sodium (Rocephin) 2 gm IVPUSH Q24H [facility] Stop: 07/28/17 16:01 Last Admin: 07/28/17 15:44 Dose: 2 gm Duloxetine HCl (Cymbalta) 60 mg PO DAILY [facility] Last Admin: 07/11/17 16:46 Dose: Not Given Ertapenem (Invanz) 1 gm IVPUSH Q24H [facility] Last Admin: 07/15/17 15:16 Dose: Not Given Fluconazole (Diflucan) 200 mg PO ONETIME ONE Stop: 07/11/17 18:01 Last Admin: 07/11/17 18:03 Dose: 200 mg Fluconazole (Diflucan) 100 mg PO DAILY [facility] Stop: 07/22/17 09:01 Last Admin: 07/18/17 08:45 Dose: 100 mg Haloperidol Lactate (Haldol) 2 mg IM ONETIME ONE Stop: 07/12/17 12:18 Last Admin: 07/12/17 12:49 Dose: 2 mg Haloperidol Lactate (Haldol) 2 mg IVPUSH ONETIME STA Stop: 07/17/17 22:53 Last Admin: 07/17/17 23:02 Dose: 2 mg Ceftriaxone Sodium 2 gm/ (Sodium Chloride) 100 mls @ 200 mls/hr IV Q24H [facility] Ertapenem 1 gm/ Sodium (Chloride) 50 mls @ 100 mls/hr IV Q24H [facility] Last Admin: 07/05/17 15:13 Dose: 100 mls/hr Ertapenem 1 gm/ Sodium (Chloride) 50 mls @ 100 mls/hr IV Q24H [facility] Last Admin: 07/12/17 15:28 Dose: 100 mls/hr Dextrose/Sodium Chloride (Dextrose 5%-Normal Saline) 1,000 mls @ 75 mls/hr IV ASDIRECTED [facility] Last Infusion: 07/13/17 21:17 Dose: Infused Insulin Detemir (Levemir) 12 unit SUBCUT BEDTIME [facility] Last Admin: 07/11/17 22:42 Dose: Not Given Insulin Detemir (Levemir) 10 unit SUBCUT BID [facility] Last Admin: 07/23/17 08:56 Dose: Not Given Lorazepam (Ativan) 1 mg PO ONETIME ONE Stop: 07/12/17 10:01 Last Admin: 07/12/17 10:36 Dose: 1 mg Non-Formulary Medication (Ciprofloxacin [Ciprofloxacin Hcl]) 250 mg PO BID [facility] Non-Formulary Medication (Mirabegron [Myrbetriq]) 50 mg PO DAILY [facility] Last Admin: 07/08/17 18:59 Dose: Not Given Olanzapine (Zyprexa) 5 mg IM ONETIME ONE Stop: 07/14/17 23:27 Last Admin: 07/14/17 23:57 Dose: 5 mg Olanzapine (Zyprexa) 5 mg IM ONETIME ONE Stop: 07/17/17 22:10 Last Admin: 07/17/17 22:28 Dose: 5 mg Ondansetron HCl (Zofran) 4 mg IVPUSH Q6H PRN PRN Reason: Nausea/Vomiting Oxybutynin Chloride (Oxybutynin Er) 10 mg PO DAILY [facility] Polyethylene Glycol (Miralax) 17 gm PO DAILY [facility] Last Admin: 07/10/17 08:37 Dose: Not Given Sertraline HCl (Zoloft) 25 mg PO DAILY [facility] Last Admin: 07/12/17 08:29 Dose: 25 mg Triamcinolone Acetonide (Triamcinolone Acetonide 0.1% Crm) 0 gm TOP BID [facility] Last Admin: 08/01/17 08:23 Dose: 1 applic Zolpidem Tartrate (Ambien) 5 mg PO BEDTIME PRN PRN Reason: Sleep - Exam General: Alert, Oriented, Cooperative, No Acute Distress. No: Mild Distress, Moderate Distress, Severe Distress, Sedated, Lethargic, Obtunded HEENT: Pupils Equal, Pupils Reactive, EOMI, Mucous Membr. Moist/Accident Neck: Supple, Trachea Midline Lungs: Clear to Auscultation, Normal Respiratory Effort. No: Crackles, Rales, Rhonchi, Rub, Stridor, Wheezing Cardiovascular: Regular Rate, Regular Rhythm GI/Abdominal Exam: Normal Bowel Sounds, Soft, Non-Tender, No Organomegaly, No Distention, No Abnormal Bruit, No Mass (Female) Exam: Deferred Back Exam: Normal Inspection, Full Range of Motion. No: CVA Tenderness (L), CVA Tenderness (R) Extremities: Normal Range of Motion, Non-Tender, No Pedal Edema, Normal Capillary Refill, Other (Right foot the has wound VAC. Skin is normal around wound VAC dressing. The rest of the right foot toes are normal in color, sensation, capillary refill ) Skin: Dry. No: Rash Wound/Incisions: Healing Well Neurological: No New Focal Deficit - Problem List Review Problem List Initiated/Reviewed/Updated: Yes - My Orders Last 24 Hours: My Active Orders 08/03/17 15:04 Acetaminophen/HYDROcodone [Shelbina 325-10 MG] 0.5 tab PO Q8H PRN - Plan Plan:: Impression 66-year-old lady who has a history of diabetes, hypertension, chronic kidney disease,peripheral artery disease, neurogenic bladder status post suprapubic catheter placement who admitted to [facility] in [place] with right fifth toe gangrene status post surgery intervention and fifth toe amputation and now wound VAC. She is being treated for wound dehiscence and wound infection. She is being followed by podiatry and infectious disease. She is on IV antibiotics Plan was to use IV antibiotics. She was transferred for wound care and IV antibiotic treatment to swing bed. 1. Right foot wound dehiscence with wound infection: It was reported that "the patient had wound dehiscence at the fifth toe amputation site and haddrainage and pus drainage on admission, Wound cx grew Klebsiella pneumoniae, Group A beta Streptococcus (Streptococcus pyogenes). She was on IV vancomycin and Zosyn, ID and Podiatry consulted S/P I&D and wound vac placement, On 07/01, was growing anaerobic organism". It was also reported that patient was on IV Abx with Ertapenem and was started on Diflucan for yeast uti - finished tx - will stop -Currently patient is on Rocephin and metronidazole by mouth. Plan is by infectious disease and podiatry 2. Diabetes mellitus type 2: Patient blood pressure is fluctuating Patient is having episodes of hypoglycemia I will stop her Glimepiride And change her Levemir from 15 units twice a day to 15 units in the morning and 15 units in the evening continue sliding scale insulin with NovoLog 3. Acute on chronic renal failure. The patient's baseline creatinine is between 1.1 to 1.3 Continue to monitor 4. Neurogenic bladder, status post suprapubic catheter placement replaced 07/03/17 5. History of essential hypertension The blood pressure is well-controlled Continue losartan 6. Peripheral vascular disease, Continue on Plavix. 7. Acute encephalopathy Patient had hallucination during swing bed admission. She responded well on Zyprexa 8. Lower extremities neuropathy Continue Cymbalta DVT prophylaxis with subcutaneous heparin.
[2017-08-04] MEDS: Oxybutynin 5 MG Tab.ER PO SCH (10:23)
[2017-08-04] MEDS: cefTRIAXone 2 GM Vial IVPUSH SCH (14:50)
[2017-08-04] MEDS: OLANZapine 5 MG Tab PO SCH (21:29)
[2017-08-04] MEDS: Sodium Chloride 0.9% 10 ML Syringe FLUSH PRN (21:33)
[2017-08-05] MEDS: metroNIDAZOLE 250 MG Tab PO SCH ×3 (06:35→20:59)
[2017-08-05] MEDS: Heparin Sodium 5,000 Units/ML Vial SUBCUT SCH ×3 (06:36→20:59)
[2017-08-05] MEDS: Formoterol/Mometasone 200-5 MCG 8.8 GM Inhaler IH SCH ×2 (06:41→18:17)
[2017-08-05] MEDS: Insulin Aspart 100 Units/ML 3 ML Pen SUBCUT SCH ×3 (08:02→17:27)
[2017-08-05] MEDS: Oxybutynin 5 MG Tab.ER PO SCH (08:44)
[2017-08-05] MEDS: Losartan 25 MG Tab PO SCH (08:44)
[2017-08-05] MEDS: atorvaSTATin 10 MG Tab PO SCH (08:45)
[2017-08-05] MEDS: Clopidogrel 75 MG Tab PO SCH (08:45)
[2017-08-05] MEDS: Insulin Detemir 100 Units/ML 3 ML Pen SUBCUT SCH ×2 (08:45→21:08)
[2017-08-05] MEDS: DULoxetine 30 MG Cap PO SCH (08:45)
[2017-08-05] MEDS: cefTRIAXone 2 GM Vial IVPUSH SCH (13:14)
[2017-08-05] MEDS: Sodium Chloride 0.9% 10 ML Syringe FLUSH PRN (13:14)
[2017-08-05] MEDS: OLANZapine 5 MG Tab PO SCH (20:59)
[2017-08-06] MEDS: Heparin Sodium 5,000 Units/ML Vial SUBCUT SCH ×3 (05:55→21:10)
[2017-08-06] MEDS: metroNIDAZOLE 250 MG Tab PO SCH ×3 (05:56→21:11)
[2017-08-06] MEDS: Insulin Aspart 100 Units/ML 3 ML Pen SUBCUT SCH ×3 (08:06→17:30)
[2017-08-06] MEDS: Formoterol/Mometasone 200-5 MCG 8.8 GM Inhaler IH SCH ×2 (09:12→17:29)
[2017-08-06] MEDS: Oxybutynin 5 MG Tab.ER PO SCH (09:12)
[2017-08-06] MEDS: Losartan 25 MG Tab PO SCH (09:13)
[2017-08-06] MEDS: DULoxetine 30 MG Cap PO SCH (09:14)
[2017-08-06] MEDS: Insulin Detemir 100 Units/ML 3 ML Pen SUBCUT SCH ×2 (09:14→21:12)
[2017-08-06] MEDS: atorvaSTATin 10 MG Tab PO SCH (09:14)
[2017-08-06] MEDS: Clopidogrel 75 MG Tab PO SCH (09:14)
[2017-08-06] MEDS: cefTRIAXone 2 GM Vial IVPUSH SCH (14:17)
[2017-08-06] MEDS: OLANZapine 5 MG Tab PO SCH (21:11)
[2017-08-07] MEDS: metroNIDAZOLE 250 MG Tab PO SCH ×3 (06:26→21:31)
[2017-08-07] MEDS: Heparin Sodium 5,000 Units/ML Vial SUBCUT SCH ×3 (06:26→21:34)
[2017-08-07] MEDS: Insulin Aspart 100 Units/ML 3 ML Pen SUBCUT SCH ×3 (08:06→17:03)
[2017-08-07] MEDS: Formoterol/Mometasone 200-5 MCG 8.8 GM Inhaler IH SCH ×2 (08:06→17:21)
[2017-08-07] MEDS: Oxybutynin 5 MG Tab.ER PO SCH (08:07)
[2017-08-07] MEDS: Losartan 25 MG Tab PO SCH (08:07)
[2017-08-07] MEDS: DULoxetine 30 MG Cap PO SCH (08:07)
[2017-08-07] MEDS: Clopidogrel 75 MG Tab PO SCH (08:08)
[2017-08-07] MEDS: atorvaSTATin 10 MG Tab PO SCH (08:08)
[2017-08-07] MEDS: Insulin Detemir 100 Units/ML 3 ML Pen SUBCUT SCH ×2 (08:08→21:32)
[2017-08-07] MEDS: cefTRIAXone 2 GM Vial IVPUSH SCH (14:40)
[2017-08-07] MEDS: OLANZapine 5 MG Tab PO SCH (21:31)
[2017-08-07] MEDS: Sodium Chloride 0.9% 10 ML Syringe FLUSH PRN (21:39)
[2017-08-08] MEDS: Heparin Sodium 5,000 Units/ML Vial SUBCUT SCH ×3 (06:15→21:46)
[2017-08-08] MEDS: metroNIDAZOLE 250 MG Tab PO SCH ×3 (07:22→21:46)
[2017-08-08] MEDS: Formoterol/Mometasone 200-5 MCG 8.8 GM Inhaler IH SCH ×2 (07:23→17:18)
[2017-08-08] MEDS: Insulin Aspart 100 Units/ML 3 ML Pen SUBCUT SCH ×3 (08:24→17:19)
[2017-08-08] MEDS: Oxybutynin 5 MG Tab.ER PO SCH (09:00)
[2017-08-08] MEDS: Losartan 25 MG Tab PO SCH (09:00)
[2017-08-08] MEDS: Clopidogrel 75 MG Tab PO SCH (09:01)
[2017-08-08] MEDS: atorvaSTATin 10 MG Tab PO SCH (09:01)
[2017-08-08] MEDS: DULoxetine 30 MG Cap PO SCH (09:01)
[2017-08-08] MEDS: Insulin Detemir 100 Units/ML 3 ML Pen SUBCUT SCH ×2 (09:05→21:45)
[2017-08-08] MEDS: cefTRIAXone 2 GM Vial IVPUSH SCH (13:46)
[2017-08-08] MEDS: OLANZapine 5 MG Tab PO SCH (20:31)
[2017-08-09] MEDS: metroNIDAZOLE 250 MG Tab PO SCH ×3 (05:53→21:24)
[2017-08-09] MEDS: Heparin Sodium 5,000 Units/ML Vial SUBCUT SCH ×3 (05:53→21:25)
[2017-08-09] MEDS: Formoterol/Mometasone 200-5 MCG 8.8 GM Inhaler IH SCH ×2 (07:48→17:24)
[2017-08-09] MEDS: Insulin Aspart 100 Units/ML 3 ML Pen SUBCUT SCH ×3 (08:10→17:21)
[2017-08-09] MEDS: Clopidogrel 75 MG Tab PO SCH (09:08)
[2017-08-09] MEDS: Losartan 25 MG Tab PO SCH (09:09)
[2017-08-09] MEDS: DULoxetine 30 MG Cap PO SCH (09:09)
[2017-08-09] MEDS: atorvaSTATin 10 MG Tab PO SCH (09:09)
[2017-08-09] MEDS: Oxybutynin 5 MG Tab.ER PO SCH (09:10)
[2017-08-09] MEDS: Insulin Detemir 100 Units/ML 3 ML Pen SUBCUT SCH ×2 (09:14→21:27)
[2017-08-09] MEDS: cefTRIAXone 2 GM Vial IVPUSH SCH (17:01)
[2017-08-09] MEDS: OLANZapine 5 MG Tab PO SCH (21:24)
[2017-08-10] MEDS: metroNIDAZOLE 250 MG Tab PO SCH ×3 (06:10→21:51)
[2017-08-10] MEDS: Heparin Sodium 5,000 Units/ML Vial SUBCUT SCH ×3 (06:11→21:54)
[2017-08-10] MEDS: Formoterol/Mometasone 200-5 MCG 8.8 GM Inhaler IH SCH ×2 (06:12→20:02)
[2017-08-10] MEDS: Insulin Aspart 100 Units/ML 3 ML Pen SUBCUT SCH ×3 (08:38→17:16)
[2017-08-10] MEDS: Losartan 25 MG Tab PO SCH (09:04)
[2017-08-10] MEDS: Insulin Detemir 100 Units/ML 3 ML Pen SUBCUT SCH ×2 (09:04→21:48)
[2017-08-10] MEDS: Oxybutynin 5 MG Tab.ER PO SCH (09:05)
[2017-08-10] MEDS: atorvaSTATin 10 MG Tab PO SCH (09:06)
[2017-08-10] MEDS: Clopidogrel 75 MG Tab PO SCH (09:06)
[2017-08-10] MEDS: DULoxetine 30 MG Cap PO SCH (09:06)
[2017-08-10] MEDS ORDERED: Insulin Detemir 100 Units/ML 3 ML Pen SUBCUT SCH (17:19)
[2017-08-10] MEDS: Triamcinolone Acetonide 0.1% Crm 15 GM Tube TOP SCH (20:02)
[2017-08-10] MEDS: OLANZapine 5 MG Tab PO SCH (21:42)
[2017-08-11] MEDS: metroNIDAZOLE 250 MG Tab PO SCH ×3 (05:52→21:43)
[2017-08-11] MEDS: Heparin Sodium 5,000 Units/ML Vial SUBCUT SCH ×3 (05:53→21:44)
[2017-08-11] MEDS: Formoterol/Mometasone 200-5 MCG 8.8 GM Inhaler IH SCH ×2 (06:23→17:42)
[2017-08-11] MEDS ORDERED: Glimepiride 2 MG Tab PO SCH (08:00)
[2017-08-11] MEDS: Insulin Aspart 100 Units/ML 3 ML Pen SUBCUT SCH ×3 (09:13→17:42)
[2017-08-11] MEDS: Clopidogrel 75 MG Tab PO SCH (10:10)
[2017-08-11] MEDS: Losartan 25 MG Tab PO SCH (10:10)
[2017-08-11] MEDS: Oxybutynin 5 MG Tab.ER PO SCH (10:10)
[2017-08-11] MEDS: atorvaSTATin 10 MG Tab PO SCH (10:10)
[2017-08-11] MEDS: DULoxetine 30 MG Cap PO SCH (10:10)
[2017-08-11] MEDS: Triamcinolone Acetonide 0.1% Crm 15 GM Tube TOP SCH ×2 (10:11→21:51)
[2017-08-11] MEDS: OLANZapine 5 MG Tab PO SCH (21:44)
[2017-08-11] MEDS: Insulin Detemir 100 Units/ML 3 ML Pen SUBCUT SCH (21:47)
[2017-08-12] MEDS: metroNIDAZOLE 250 MG Tab PO SCH ×3 (06:31→21:28)
[2017-08-12] MEDS: Heparin Sodium 5,000 Units/ML Vial SUBCUT SCH ×3 (06:32→21:29)
--- NOTE | 2017-08-12 07:21 | PN ---
DATE: 08/11/2017 SUBJECTIVE: Ms. Hampton is a 66-year-old female, seen in swing bed. She has no issues reported today during the encounter. Seen by the Podiatry. Wound VAC is being discontinued, and the patient to be allowed to wear a short walking boot. Continue with dressing changes. Sugars have been elevated towards the dinnertime and bedtime. The last time I have seen Ms. Hampton in swing bed, she had hallucinations and she was well aware of the events. Currently, there has been no recurrence of that. PHYSICAL EXAMINATION: Vital Signs: Blood pressure 113/57, heart rate of 82 beats per minute, respirations 20 breaths per minute, oxygen saturation 100%, temperature 98.1. General Appearance: Awake, in acute distress. Chest: Symmetric chest expansion, Lungs: Bilateral air entry. CVS: Regular rate and rhythm. Abdomen: Soft. Normoactive bowel sounds. Extremities: No edema. Good pulses. LABORATORY DATA: Sugars reviewed, fasting sugar around 94, bedtime sugars 164 and 292. We will increase her morning detemir gradually. It was increased yesterday to 70. We will increase it to 20. We will also have a scheduled NovoLog at bedtime. We will start with doing 3 units. Continue checking blood sugars, fasting and pre meals. Monitor her sugars and we will make adjustments on her insulin as when she will get discharged next week to [facility], we can try to avoid doing the sliding scale. Apparently, Ms. Hampton does not really adhere to a diabetic diet and hence sugars can get uncontrolled. For now, we will continue diabetic diet while she is in the swing bed, and we will make changes on her insulin based on her sugars. We will continue with whatever the recommendations of woody. CLAUDE /[id number] ERIC
[2017-08-12] MEDS: Formoterol/Mometasone 200-5 MCG 8.8 GM Inhaler IH SCH ×2 (07:49→17:41)
[2017-08-12] MEDS: Insulin Aspart 100 Units/ML 3 ML Pen SUBCUT SCH ×4 (07:51→17:41)
[2017-08-12] MEDS: DULoxetine 30 MG Cap PO SCH (08:56)
[2017-08-12] MEDS: Oxybutynin 5 MG Tab.ER PO SCH (08:56)
[2017-08-12] MEDS: atorvaSTATin 10 MG Tab PO SCH (08:56)
[2017-08-12] MEDS: Losartan 25 MG Tab PO SCH (08:57)
[2017-08-12] MEDS: Clopidogrel 75 MG Tab PO SCH (08:57)
[2017-08-12] MEDS: Insulin Detemir 100 Units/ML 3 ML Pen SUBCUT SCH ×2 (09:03→21:11)
[2017-08-12] MEDS: Triamcinolone Acetonide 0.1% Crm 15 GM Tube TOP SCH ×2 (09:04→20:41)
[2017-08-12] MEDS: Acetaminophen 325 MG Tab PO PRN (20:38)
[2017-08-12] MEDS: OLANZapine 5 MG Tab PO SCH (20:39)
[2017-08-12] MEDS ORDERED: Insulin Aspart 100 Units/ML 3 ML Pen SUBCUT SCH (21:00)
[2017-08-12] MEDS ORDERED: Loperamide 2 MG Cap PO ONE (21:02)
[2017-08-13] MEDS: metroNIDAZOLE 250 MG Tab PO SCH ×3 (05:44→21:45)
[2017-08-13] MEDS: Heparin Sodium 5,000 Units/ML Vial SUBCUT SCH ×3 (05:45→21:44)
[2017-08-13] MEDS: Insulin Aspart 100 Units/ML 3 ML Pen SUBCUT SCH ×4 (08:18→17:38)
[2017-08-13] MEDS: Oxybutynin 5 MG Tab.ER PO SCH (08:24)
[2017-08-13] MEDS: Losartan 25 MG Tab PO SCH (08:25)
[2017-08-13] MEDS: atorvaSTATin 10 MG Tab PO SCH (08:25)
[2017-08-13] MEDS: DULoxetine 30 MG Cap PO SCH (08:25)
[2017-08-13] MEDS: Clopidogrel 75 MG Tab PO SCH (08:25)
[2017-08-13] MEDS: Formoterol/Mometasone 200-5 MCG 8.8 GM Inhaler IH SCH ×2 (08:27→17:39)
[2017-08-13] MEDS: Triamcinolone Acetonide 0.1% Crm 15 GM Tube TOP SCH ×2 (08:27→20:16)
[2017-08-13] MEDS: Insulin Detemir 100 Units/ML 3 ML Pen SUBCUT SCH ×2 (09:53→20:55)
[2017-08-13] MEDS: OLANZapine 5 MG Tab PO SCH (20:14)
[2017-08-14] MEDS: metroNIDAZOLE 250 MG Tab PO SCH ×3 (05:48→21:36)
[2017-08-14] MEDS: Heparin Sodium 5,000 Units/ML Vial SUBCUT SCH ×3 (05:49→21:36)
[2017-08-14] MEDS: Formoterol/Mometasone 200-5 MCG 8.8 GM Inhaler IH SCH ×2 (07:51→17:36)
[2017-08-14] MEDS: Insulin Aspart 100 Units/ML 3 ML Pen SUBCUT SCH ×4 (08:22→17:35)
[2017-08-14] MEDS: Oxybutynin 5 MG Tab.ER PO SCH ×2 (08:42→08:43)
[2017-08-14] MEDS: Clopidogrel 75 MG Tab PO SCH (08:43)
[2017-08-14] MEDS: DULoxetine 30 MG Cap PO SCH (08:43)
[2017-08-14] MEDS: atorvaSTATin 10 MG Tab PO SCH (08:43)
[2017-08-14] MEDS: Losartan 25 MG Tab PO SCH (08:44)
[2017-08-14] MEDS: Insulin Detemir 100 Units/ML 3 ML Pen SUBCUT SCH ×2 (08:44→21:21)
[2017-08-14] MEDS: Triamcinolone Acetonide 0.1% Crm 15 GM Tube TOP SCH ×2 (08:46→20:41)
[2017-08-14] MEDS: Ciprofloxacin 500 MG Tab PO SCH (11:25)
[2017-08-14] MEDS ORDERED: Fluconazole 100 MG Tab PO ONE ×3 (14:06→14:15)
[2017-08-14] MEDS: Loperamide 2 MG Cap PO PRN (20:15)
[2017-08-14] MEDS: OLANZapine 5 MG Tab PO SCH (20:41)
[2017-08-15] MEDS: Ciprofloxacin 500 MG Tab PO SCH ×2 (03:04→20:55)
[2017-08-15] MEDS: metroNIDAZOLE 250 MG Tab PO SCH ×3 (05:46→21:01)
[2017-08-15] MEDS: Heparin Sodium 5,000 Units/ML Vial SUBCUT SCH ×3 (05:47→21:00)
[2017-08-15] MEDS: Insulin Aspart 100 Units/ML 3 ML Pen SUBCUT SCH ×4 (08:14→17:28)
[2017-08-15] MEDS: Oxybutynin 5 MG Tab.ER PO SCH ×2 (08:22)
[2017-08-15] MEDS: DULoxetine 30 MG Cap PO SCH (08:22)
[2017-08-15] MEDS: Clopidogrel 75 MG Tab PO SCH (08:22)
[2017-08-15] MEDS: atorvaSTATin 10 MG Tab PO SCH (08:22)
[2017-08-15] MEDS: Losartan 25 MG Tab PO SCH (08:22)
[2017-08-15] MEDS: Triamcinolone Acetonide 0.1% Crm 15 GM Tube TOP SCH ×2 (08:23→20:55)
[2017-08-15] MEDS: Insulin Detemir 100 Units/ML 3 ML Pen SUBCUT SCH ×2 (08:23→20:54)
[2017-08-15] MEDS: Formoterol/Mometasone 200-5 MCG 8.8 GM Inhaler IH SCH ×2 (08:23→18:34)
[2017-08-15] MEDS: Acetaminophen 325 MG Tab PO PRN (08:25)
[2017-08-15] MEDS ORDERED: Fluconazole 100 MG Tab PO SCH (14:00)
[2017-08-15] MEDS: OLANZapine 5 MG Tab PO SCH (20:56)
[2017-08-15] MEDS: Loperamide 2 MG Cap PO PRN (21:01)
[2017-08-16] MEDS: Heparin Sodium 5,000 Units/ML Vial SUBCUT SCH (05:50)
[2017-08-16] MEDS: metroNIDAZOLE 250 MG Tab PO SCH (05:51)
[2017-08-16] MEDS: Insulin Aspart 100 Units/ML 3 ML Pen SUBCUT SCH ×2 (08:30→12:59)
[2017-08-16] MEDS: Oxybutynin 5 MG Tab.ER PO SCH ×2 (09:25→09:26)
[2017-08-16] MEDS: Clopidogrel 75 MG Tab PO SCH (09:25)
[2017-08-16] MEDS: atorvaSTATin 10 MG Tab PO SCH (09:25)
[2017-08-16] MEDS: DULoxetine 30 MG Cap PO SCH (09:25)
[2017-08-16] MEDS: Losartan 25 MG Tab PO SCH (09:26)
[2017-08-16] MEDS: Formoterol/Mometasone 200-5 MCG 8.8 GM Inhaler IH SCH (09:26)
[2017-08-16] MEDS: Insulin Detemir 100 Units/ML 3 ML Pen SUBCUT SCH (09:29)
[2017-08-16 09:30] VITALS: BP 141/78
[2017-08-16] MEDS: Triamcinolone Acetonide 0.1% Crm 15 GM Tube TOP SCH (09:30)
--- NOTE | 2017-09-19 15:02 | PN ---
DATE: 08/08/2017 SUBJECTIVE: Gaby is a 66-year-old lady, well known to me from previous care. She was admitted to swing bed following amputation of her right 5th toe. She presented to [place] with gangrene of the toe. She underwent investigation and was found to have significant peripheral arterial disease requiring Vascular Surgery intervention. Arthrectomy and angioplasty were performed, however, the toe still required amputation. She was discharged, but then experienced wound dehiscence and subsequent wound infection, and went back to [facility], and was admitted to swing bed with a wound VAC and for ongoing IV therapy. She was seen by Infectious Disease on August 02. and she is following up with Podiatry. The discharge plan is in place and she will be admitted to [facility] around the of the year. Other past medical history includes diabetes, hypertension, chronic kidney disease, neurogenic bladder for which she now has a suprapubic catheter since around 2008. Review of her clinical data shows that she is drinking adequate fluids. she is voiding and moving her bowels. She is tolerating 100% of her meals. Her vital signs have remained stable and she remains afebrile. Her blood sugars were checked daily and for the most part appear well controlled, although, she does have occasional lower sugars and a higher sugar depending on oral intake. We will order repeat labs for tomorrow including a CBC, BMP, creatinine, with GFR, ALT, and C-reactive protein. Her medications and orders are reviewed. She previously was treated with IV ceftriaxone 2 g every 24 hours, and this was discontinued following her last Infectious Disease visit. At this time, she continues on insulin sliding scale and we have asked the incoming hospitalist, Dr. Vásquez, who is Gaby's primary care physician, to look at her diabetes management. Sliding scale cannot be used at [facility], so we asked Dr. Vásquez to look at possible fixed doses of short-acting insulin at mealtime. PHYSICAL EXAMINATION: General: Gaby is a pleasant lady. She participates in the visit. She voiced no new concerns or complaints. She is very active doing puzzles and coloring, but laments that her eyesight is not as good as it had been. Vital Signs: Blood pressure 136/76, pulse 87, respiratory rate 20, oxygen saturation 100% on room air. She is afebrile. HEENT: Unremarkable. ENT was clear. Chest: Clear, but diminished bilateral breath sounds. Heart: Regular rate and rhythm. Abdomen: Benign. Extremities: No edema. There was a dressing in place over the right foot. No changes are made in her care. We have ordered lab work for tomorrow. Followup Labs performed on August 09, showed hemoglobin and hematocrit of 9.2 and 28.7, which has been stable, but slightly improved from the time of admission. Creatinine was 1.5 with a GFR of 35, which has been relatively stable throughout the admission as well. ALT is normal at 48. C-reactive protein was less than 0.5, and sedimentation rate was 96 mm/hour. No other changes are made today. [facility] /[id number] MTDD
--- NOTE | 2017-09-20 03:55 | PN ---
DATE: 08/15/2017 SUBJECTIVE: Gaby continues to do well. She is scheduled to be discharged tomorrow to [facility]. When we had signed her out to Dr. Vásquez, we asked her to look at her insulin coverage for diabetes. Here in the hospital, we had been using a sliding scale, but this is not possible when she gets to Basic Care. Dr. Vásquez has made adjustments and added low-dose NovoLog at mealtime. Her Levemir was increased to 20 units, and she will be getting 2 units of NovoLog prior to supper, and they will continue to monitor the sugars and adjust accordingly. The wound VAC has now been discontinued following telemedicine visit with Podiatry, daily dressings continue, and she is able to wear short walking boot. Gaby has a permanent suprapubic catheter for neurogenic bladder and has continued to have intermittent issues with leakage around the catheter. We added oxybutynin 5 mg daily to her regimen, and this seems to be helping. We also ordered a new urinalysis to be done. Urinalysis showed a cloudy yellow urine with a specific gravity of 20 with moderate leukocyte esterase. Microscopic exam was not performed. Urine culture from a sample from the end of June was noted to have a large amount of yeast growing. We ordered a new culture. This 2nd culture now shows a growth of Enterococcus faecium, as well as a large growth of yeast again. She was given an initial dose of 200 mg and we followed by 100 mg daily. Gaby has been ambulatory with a front-wheeled walker, and we will order a new one for tomorrow for her to take to basic care with her. Orders were sent to [facility] for the walker. Review of her clinical data otherwise shows stable vital signs. She is taking in adequate fluids. She is voiding and moving her bowels. Blood sugars are well controlled. PHYSICAL EXAMINATION: General: On exam, she is in her room. She is in good spirits. She is looking forward to discharge. Her ultimate goal is to return home, but she feels that she will go to swing bed and get stronger before she makes the transition to home. She voiced no new concerns or complaints. No chest pain or shortness of breath. No calf or leg pain. She is ambulating well with a walker. Vital Signs: Blood pressure was 147/80, pulse 84, respiratory rate 20, oxygen saturation 100% on room air. She is afebrile. HEENT: Unremarkable. ENT was clear. Chest: Showed clear but diminished bilateral breath sounds. Heart: Showed regular rate and rhythm. Abdomen: Soft, flat, benign, Extremities: Showed dressings to be in place at the site of the right 5th toe amputation. She is wearing a walking boot. The changes we recently made with giving her oxybutynin and treating the fungal infection seemed to have helped with the leakage of the suprapubic catheter, which has been in place since 2009. PLAN: We will continue the present management. She is currently receiving both Diflucan and ciprofloxacin for the yeast and bacterial urine infections. The oxybutynin is helping with the bladder spasm. Her sugars are well controlled with the recent adjustments, and she is eager to be discharged tomorrow. No other changes are made today. [facility] /[id number] MTDShayy
--- NOTE | 2017-09-20 08:07 | DISCH ---
DISCHARGE DIAGNOSES: 1. 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 2. Peripheral arterial disease. 3. Type 2 diabetes, controlled. 4. Chronic suprapubic catheter, placed in 2009 for neurogenic bladder. 5. Urine culture positive for Enterococcus faecium and for yeast. 6. Bladder spasms with leakage of urine in suprapubic catheter, improved with the addition of oxybutynin, and treatment of bacterial and fungal infections. 7. Impaired gait. Will be discharged to basic care with a front-wheeled walker. Remainder of medical history as outlined in the admission history and physical. REASON FOR ADMISSION TO SWING BED: Gaby is a 66-year-old lady with peripheral arterial disease. She developed gangrene and underlying osteomyelitis of the right 5th toe. Attempts were made at Vascular Surgery intervention with atherectomy and angioplasty, but the toe still required amputation. She then underwent wound dehiscence and wound infection, was readmitted and came to swing bed with a wound VAC in place and on IV antibiotics. She was receiving 2 g of Rocephin every 24 hours. PERTINENT LABS AND X-RAYS: She was followed by Infectious Disease during this admission and labs were checked routinely prior to Infectious Disease visits. CBC prior to admission showed hemoglobin and hematocrit of 9.2 and 28.7, which was stable throughout the admission. White count and platelets were unremarkable. Creatinine was 1.5 with a GFR of 35. ALT was normal at 48. CRP was less than 0.05 at discharge, and sedimentation rate was 96 mm/hour, which had remained relatively unchanged over the course of the admission. COURSE IN THE EMERGENCY ROOM: Her blood sugars were monitored throughout the course of the admission and varied, but for the most part were controlled. Prior to her discharge, we had asked her usual provider to make some changes in her treatment regimen. She had been on NovoLog sliding scale, and at the time of discharge, she will be on a fixed dose of Levemir 20 units and NovoLog 2 units prior to supper. [facility] will continue to monitor sugars, and her primary physician will continue to make adjustments as needed. Gaby worked with Physical and Occupational Therapy during this stay. Her gait is somewhat impaired by the amputation. She is wearing a walking boot and will require a front-wheeled walker. An order was placed with [facility] for the walker. On the day of discharge, she is in good spirits. She voices no new concerns or complaints. No chest pain or shortness of breath. No abdominal pain. She is taking in adequate fluids, and she is voiding and moving her bowels, and tolerating 100% of her meals. Her vital signs have been stable and she has remained afebrile. PHYSICAL EXAMINATION: Vital Signs: At the time of discharge, blood pressure is 147/80, pulse 84, respiratory rate 20, oxygen saturation 100% on room air, and she remained afebrile. Height 5 feet 1 inch, weight 95 pounds. HEENT: Unremarkable. ENT was clear. Chest: Showed clear but diminished bilateral breath sounds. Heart: Showed regular rate and rhythm. Abdomen: Soft, flat, and benign. Extremities: Showed no edema. Neurologic: Neurologically, there were no gross motor or sensory deficits. DISCHARGE ORDERS: She will be on a regular diet as tolerated. She is full weightbearing with activity as tolerated. She should not drive, but may shower. They should seek early care for fever, increased pain, swelling, redness or drainage from the operative site. We placed a referral to [facility] to continue Physical Therapy services at [facility], and a new front-wheeled walker has been ordered, and we suggested followup with Urology regarding the issues that she has with her suprapubic catheter. ALLERGIES: Aspirin, ibuprofen, metformin. DISCHARGE MEDICATIONS: [facility] A complete list of her medications, doses, and schedules can be found there. Medications include: 1. P.r.n. Tylenol. 2. Albuterol HFA. 3. Alendronate. 4. Plavix. 5. Duloxetine. 6. Insulin Aspart 3 units prior to dinner. 7. Levemir insulin 20 units in the morning, and 13 units at bedtime. 8. Loperamide p.r.n. 9. Losartan. 10.Dulera. 11.Olanzapine. 12.Atorvastatin. 13.For her bladder issues, she is now on oxybutynin 20 mg daily, which was increased during this admission. 14.She will continue on ciprofloxacin 500 mg every 18 hours for another 5 doses. 15.She will continue also on Diflucan 100 mg daily to complete a 14 day course. CONDITION AT THE TIME OF DISCHARGE: Much improved and stable. [facility] /[id number]
== END 2017-08-16 11:20 | disposition other institution (70) | DRG 862 ==
LOC: UNDOADMIN 07-04 13:14 → DL.MS 07-04 13:14
PROVIDERS: ADMIT Internal Medicine; ATTEND Internal Medicine
DX: T81.4XXA Infection following a procedure, initial encounter (principal); G93.40 Encephalopathy, unspecified; N17.9 Acute kidney failure, unspecified; R44.3 Hallucinations, unspecified; B96.1 Klebsiella pneumoniae [K. pneumoniae] as the cause of diseases classified elsewhere; B95.0 Streptococcus, group A, as the cause of diseases classified elsewhere; E11.40 Type 2 diabetes mellitus with diabetic neuropathy, unspecified; Z79.4 Long term (current) use of insulin; Z79.84 Long term (current) use of oral hypoglycemic drugs; I12.9 Hypertensive chronic kidney disease with stage 1 through stage 4 chronic kidney disease, or unspecified chronic kidney disease; E11.22 Type 2 diabetes mellitus with diabetic chronic kidney disease; N18.9 Chronic kidney disease, unspecified; F17.210 Nicotine dependence, cigarettes, uncomplicated; N31.9 Neuromuscular dysfunction of bladder, unspecified; Z93.50 Unspecified cystostomy status; I73.9 Peripheral vascular disease, unspecified; M19.90 Unspecified osteoarthritis, unspecified site; M79.7 Fibromyalgia; K21.9 Gastro-esophageal reflux disease without esophagitis; R41.0 Disorientation, unspecified; E78.5 Hyperlipidemia, unspecified; Z88.8 Allergy status to other drugs, medicaments and biological substances; Z79.02 Long term (current) use of antithrombotics/antiplatelets; Z79.899 Other long term (current) drug therapy
CPT/HCPCS: 36415; 51702; 70450; 71010; 80048; 80076; 80305; 81001; 81003; 82550; 82565; 82962; 84450; 84460; 85025; 85651; 86140; 87045; 87046; 87086; 87088; 87186; 87493; 87899; 94010; 97110-GO; 97110-GP; 97116-GP; 97162-GP; 97164-GP; 97165-GO; 97168-GO; 97530-GO; A9270-GY; J0696; J1335; J1630; J1644; J1815-GY; J7042; J7050; S0166

== ENCOUNTER 2017-09-12 08:11 | Emergency (ER) | payer MEDICARE, MEDICAID ==
[2017-09-12 08:26] VITALS: BP 70/53
--- NOTE | 2017-09-12 08:51 | EDM.PDOC ---
ED HPI GENERAL MEDICAL PROBLEM - General Chief Complaint: Lower Extremity Injury/Pain Stated Complaint: IN BY AMBULANCE Time Seen by Provider: 09/12/17 08:20 Source of Information: Reports: Patient, RN, RN Notes Reviewed History Limitations: Reports: No Limitations - History of Present Illness INITIAL COMMENTS - FREE TEXT/NARRATIVE: Patient presents to ER per [facility] with complaint of right leg pain after a fall in the bathroom at the [facility]. Patient states she was somewhat dizzy when she fell. She states she has had a cough and has been on antibiotics. She states she has had chest pain in the right chest radiating to the left. Onset: Today Location: Reports: Chest, Lower Extremity, Right Quality: Reports: Ache Severity: Moderate Improves with: Reports: None Worsens with: Reports: None Associated Symptoms: Reports: No Other Symptoms Right Hip Pain Score (Numeric/FACES): 8 - Related Data Allergies Allergy/AdvReac Type Severity Reaction Status Date / Time aspirin Allergy Nausea Verified 09/12/17 08:17 ibuprofen Allergy Hives Verified 09/12/17 08:17 metformin Allergy Abdominal Verified 09/12/17 08:17 Pain Home Meds: Home Meds Losartan Potassium 25 mg PO DAILY 12/23/14 [History] Alendronate [Fosamax] 70 mg PO Q7D@0600 10/08/15 [History] Oxybutynin [Oxybutynin ER] 20 mg PO DAILY 04/13/16 [History] atorvaSTATin [Lipitor] 10 mg PO DAILY 04/13/16 [History] Clopidogrel [Plavix] 75 mg PO DAILY 06/30/17 [History] Mometasone/Formoterol [Dulera 200-5 MCG] 1 puff IH BIDRT 06/30/17 [History] Acetaminophen [Tylenol] 650 mg PO Q4HR PRN 07/04/17 [History] DULoxetine [Cymbalta] 30 mg PO DAILY 08/16/17 [History] Insulin Detemir [Levemir] 20 unit SUBCUT QAM 08/16/17 [History] Loperamide [Imodium AD] 2 mg PO Q6H 08/16/17 [History] OLANZapine [Olanzapine] 2.5 mg PO BEDTIME 08/16/17 [History] Triamcinolone Acetonide [Triamcinolone Acetonide 0.1% Crm] 1 applic TOP BID 10/02 [History] Amoxicillin/Clavulanate K [Augmentin 875-125 MG] 1 tab PO BID 09/12/17 [History] Glimepiride 1 mg PO DAILY 09/12/17 [History] Lactobac Cmb #3/Fos/Pantethine [Probiotic & Acidophilus] 1 cap PO DAILY [History] Mirabegron [Myrbetriq] 50 mg PO DAILY 09/12/17 [History] methylPREDNISolone [Methylprednisolone] 4 mg PO ASDIRECTED 09/12/17 [History] Past Medical History HEENT History: Reports: Impaired Vision Other HEENT History: left eyes 02/04/15 is havign surgery to "unclog the arteries ", blind in left eye Cardiovascular History: Reports: Hypertension Respiratory History: Reports: Pneumonia, Recurrent Gastrointestinal History: Reports: Chronic Constipation, GERD Other Gastrointestinal History: recent problem with constipation Genitourinary History: Reports: Other (See Below) Other Genitourinary History: bladder surgery Suprapubic cather [employer] History: Reports: Musculoskeletal History: Reports: Fibromyalgia, Osteoarthritis Neurological History: Reports: Neuropathy, Diabetic Psychiatric History: Reports: None Endocrine/Metabolic History: Reports: Diabetes, Type II Hematologic History: Reports: Anemia, Other (See Below) Other Hematologic History: Cystitis Hemorrhagic Immunologic History: Reports: None Oncologic (Cancer) History: Reports: None Dermatologic History: Reports: None - Infectious Disease History Infectious Disease History: Reports: Mumps - Past Surgical History Head Surgeries/Procedures: Reports: None HEENT Surgical History: Reports: Eye Surgery, Other (See Below) GI Surgical History: Reports: Other (See Below) Other GI Surgeries/Procedures: Thinks she had appy at same time as other surgery Musculoskeletal Surgical History: Reports: Other (See Below) Other Musculoskeletal Surgeries/Procedures:: rajesh in left femur (severe broken leg per info from pt) Social & Family History - Family History Family Medical History: Noncontributory Cardiac: Reports: Hypertension Endocrine/Metabolic: Reports: Diabetes, type II - Tobacco Use Smoking Status *Q: Former Smoker Years of Tobacco use: 53 Packs/Tins Daily: 0.5 Used Tobacco, but Quit: Yes Month Tobacco Last Used: 4 Second Hand Smoke Exposure: No - Caffeine Use Caffeine Use: Reports: Coffee, Tea - Alcohol Use Days Per Week of Alcohol Use: 0 - Recreational Drug Use Recreational Drug Use: No Drug Use in Last 12 Months: No Recreational Drug Type: Reports: Marijuana/Hashish Recreational Drug Use Frequency: Socially - Living Situation & Occupation Living situation: Reports: with Family Occupation: Retired Review of Systems - Review of Systems Review Of Systems: ROS reveals no pertinent complaints other than HPI. ED EXAM, GENERAL - Physical Exam Exam: See Below Exam Limited By: No Limitations General Appearance: Alert, WD/WN, No Apparent Distress Eye Exam: Bilateral Eye: Normal Inspection Ears: Normal External Exam, Normal Canal, Hearing Grossly Normal, Normal TMs Nose: Normal Inspection, Normal Mucosa, No Blood Throat/Mouth: Normal Inspection, Normal Lips, Normal Teeth, Normal Gums, Normal Oropharynx, Normal Voice, No Airway Compromise Head: Atraumatic, Normocephalic Neck: Normal Inspection, Supple, Non-Tender, Full Range of Motion Respiratory/Chest: Other (clear and diminished) Cardiovascular: Normal Peripheral Pulses, Regular Rate, Rhythm, No Edema, No Gallop, No JVD, No Murmur, No Rub GI/Abdominal: Normal Bowel Sounds, Soft, Non-Tender, No Organomegaly, No Distention, No Abnormal Bruit, No Mass (Female) Exam: Deferred Rectal (Female) Exam: Deferred Back Exam: Normal Inspection, Full Range of Motion, NT Extremities: Other (decreased range of motion. Right leg/hip pain.) Neurological: Alert, Oriented, CN II-XII Intact, Normal Cognition, Normal Gait, Normal Reflexes, No Motor/Sensory Deficits Psychiatric: Normal Affect, Normal Mood Skin Exam: Warm, Dry, Intact, Normal Color, No Rash Lymphatic: No Adenopathy EKG INTERPRETATION EKG Date: 09/12/17 Time: 08:35 Rhythm: A-Flutter Rate (Beats/Min): 97 [place]: LAD-Left [place] Deviation P-Wave: Variable QRS: Wide ST-T: Depressed Comparison: Change From Previous EKG Course - Vital Signs Last Recorded V/S: Last Vital Signs Temp 96.2 F 09/12/17 08:11 Pulse 80 09/12/17 08:11 Resp 24 H 09/12/17 08:11 BP 70/53 L 09/12/17 08:11 Pulse Ox 97 09/12/17 08:11 - Orders/Labs/Meds Labs: Laboratory Tests 09/12/17 09/12/1709/12/18 Range/Units 08:42 08:42 08:42 WBC 50.5 H* (5.0-10.0) 10^3/uL RBC 3.44 L (4.2-5.4) 10^6/uL Hgb 10.7 L D (12.0-16.0) g/dL Hct 31.7 L (37.0-47.0) % MCV 92.2 D (80-100) fL MCH 31.1 (27.0-34.0) pg MCHC 33.8 (33.0-35.0) g/dL Plt Count 330 (150-450) 10^3/uL Neut % (Auto) 88.2 H (42.2-75.2) % Lymph % (Auto) 4.9 L (20.5-50.1) % [place] % (Auto) 6.8 (2-8) % Eos % (Auto) 0.1 L (1.0-3.0) % Baso % (Auto) 0.0 (0.0-1.0) % Add Manual Diff Yes Neutrophils % (Manual) 71 (42-75) % Band Neutrophils % 10 % Lymphocytes % (Manual) 4 L (20-50) % Monocytes % (Manual) 6 (2-8) % Metamyelocytes % 7 Myelocytes % 2 Sodium 120 L D (135-145) mmol/L Potassium 6.5 H D (3.6-5.0) mmol/L Chloride 93 L D (101-111) mmol/L Carbon Dioxide 13.0 L (21.0-31.0) mmol/L Anion Gap 20.5 BUN 96 H D (7-18) mg/dL Creatinine 3.5 H D (0.6-1.3) mg/dL Est Cr Clr Drug Dosing 12.12 mL/min Estimated GFR (MDRD) 13 BUN/Creatinine Ratio 27.42 Glucose 300 H (74-105) mg/dL Lactic Acid (0.5-2.2) mmol/L Calcium 6.9 L (8.4-10.2) mg/dl Total Bilirubin 0.6 (0.2-1.0) mg/dL AST 53 H (10-42) IU/L ALT 30 (10-60) IU/L Alkaline Phosphatase 93 (42-121) IU/L Creatine Kinase 115 (26-174) IU/L Creatine Kinase Index 1.7 (0-2.4) % CK-MB (CK-2) 2.00 (0.4-4.7) ng/mL Troponin I < 0.02 (0.00-0.02) ng/ml Total Protein 4.9 L (6.7-8.2) g/dl Albumin 1.7 L (3.2-5.5) g/dl Globulin 3.2 Albumin/Globulin Ratio 0.53 / Range/Units 08:42 WBC (5.0-10.0) 10^3/uL RBC (4.2-5.4) 10^6/uL Hgb (12.0-16.0) g/dL Hct (37.0-47.0) % MCV (80-100) fL MCH (27.0-34.0) pg MCHC (33.0-35.0) g/dL Plt Count (150-450) 10^3/uL Neut % (Auto) (42.2-75.2) % Lymph % (Auto) (20.5-50.1) % [place] % (Auto) (2-8) % Eos % (Auto) (1.0-3.0) % Baso % (Auto) (0.0-1.0) % Add Manual Diff Neutrophils % (Manual) (42-75) % Band Neutrophils % % Lymphocytes % (Manual) (20-50) % Monocytes % (Manual) (2-8) % Metamyelocytes % Myelocytes % Sodium (135-145) mmol/L Potassium (3.6-5.0) mmol/L Chloride (101-111) mmol/L Carbon Dioxide (21.0-31.0) mmol/L Anion Gap BUN (7-18) mg/dL Creatinine (0.6-1.3) mg/dL Est Cr Clr Drug Dosing mL/min Estimated GFR (MDRD) BUN/Creatinine Ratio Glucose (74-105) mg/dL Lactic Acid 5.0 H (0.5-2.2) mmol/L Calcium (8.4-10.2) mg/dl Total Bilirubin (0.2-1.0) mg/dL AST (10-42) IU/L ALT (10-60) IU/L Alkaline Phosphatase (42-121) IU/L Creatine Kinase (26-174) IU/L Creatine Kinase Index (0-2.4) % CK-MB (CK-2) (0.4-4.7) ng/mL Troponin I (0.00-0.02) ng/ml Total Protein (6.7-8.2) g/dl Albumin (3.2-5.5) g/dl Globulin Albumin/Globulin Ratio Meds: Medications Discontinued Medications Generic Name Dose Route Start Last Admin Trade Name Freq PRN Reason Stop Dose Admin Norepinephrine Bitartrate 4 mg 250 mls @ 7.5 mls/hr 09/12/17 09:15 09/12/17 09:18 / Dextrose/Water IV 2 mcg/min TITRATE VALERIE 7.5 mls/hr Protocol Administration 2 MCG/MIN Sodium Chloride 1,000 mls @ 100 mls/hr 09/12/17 09:45 09/12/17 09:32 Normal Saline IV 100 mls/hr ASDIRECTED VALERIE Administration Levofloxacin/Dextrose 750 mg/ 150 mls @ 100 mls/hr 09/12/17 10:07 09/12/17 10 :16 Premix IV 09/12/17 11:36 100 mls/hr ONETIME ONE Administration Vancomycin HCl 1 gm/ Sodium 250 mls @ 167 mls/hr 09/12/17 10:07 09/12/17 11: 23 Chloride IV 09/12/17 11:36 Not Given ONETIME ONE Sodium Polystyrene Sulfonate 30 gm 09/12/17 09:54 09/12/17 10:08 Kayexalate PO 09/12/17 09:55 30 gm ONETIME ONE Administration Sodium Polystyrene Sulfonate Confirm 09/12/17 10:10 09/12/17 10:35 Kayexalate Administered 09/12/17 10:11 Not Given Dose 15 gm .ROUTE .[facility] ONE - Radiology Interpretation Free Text/Narrative:: CT chest: Small anterior pericardial effusion. Partial fluid filling of the thoracic esophagus suggesting gastroesophagel reflux. Nonspecific chronic interstial lung disease. Coronary atherosclerosis. Please see abdomen/pelvis CT report. See Rad report. CT abdomen and pelvis: Moderate wall thickening of the abdominal and sigmoid colon. The finding is consistent with nonspecific colitis. Clinical correlation to determine the specific etiology is recommended. Nonspecific mild peritoneal fluid. Prior cholecystectomy. Lower sacral region cellulitis. See CT chest. See Rad report. Departure - Departure Time of Disposition: 11:15 Disposition: DC/Tfer to Acute Hospital 02 Clinical Impression: Stool guaiac positive Sepsis Qualifiers: Sepsis type: sepsis due to unspecified organism Qualified Code(s): A41.9 - Sepsis, unspecified organism Fall with injury Qualifiers: Encounter type: initial encounter Qualified Code(s): W19.XXXA - Unspecified fall, initial encounter - Discharge Information Referrals: Adeline Vásquez MD [Primary Care Provider] - Forms: ED Department Discharge, Interfacility Transfer YUNIOR
[2017-09-12] MEDS ORDERED: Norepinephrine 4 MG in Dextrose 5% in Water 246 ML IV SCH ×2 (09:15)
[2017-09-12 09:16] LABS: CHLORIDE,CL 93 mmol/L (101-111)
[2017-09-12 09:18] LABS: ANION GAP 20.5
[2017-09-12 09:19] LABS: SODIUM,NA 120 mmol/L (135-145)
[2017-09-12] MEDS ORDERED: Sodium Chloride 0.9% 1,000 ML IV SCH (09:45)
[2017-09-12] MEDS ORDERED: Sodium Polystyrene Sulfonate 15 GM/60 ML Susp 60 ML Bot PO ONE (09:54)
[2017-09-12] MEDS ORDERED: Levofloxacin/Dextrose 5%-Water 750 MG in Premix Bag 1 BAG IV ONE (10:07)
[2017-09-12] MEDS ORDERED: Sodium Polystyrene Sulfonate 15 GM/60 ML Susp 60 ML Bot ONE (10:10)
--- NOTE | 2017-09-14 12:56 | EKG ---
09/12/2017- REMY MORGAN JANUARY - EKG done on a 66-year-old female, showing sinus rhythm, heart rate of 97 beats per minute, left axis deviation, poor R-wave progression, T-wave changes noted lateral leads and ST depressions noted on V4-V6. [facility] /[id number] MTDD
== END 2017-09-12 11:43 ==
LOC: DL.ED 08:11
DX: A41.9 Sepsis, unspecified organism (principal); M79.604 Pain in right leg; M25.551 Pain in right hip; T14.8XXA Other injury of unspecified body region, initial encounter; R19.5 Other fecal abnormalities; L03.312 Cellulitis of back [any part except buttock and flank]; I10 Essential (primary) hypertension; K21.9 Gastro-esophageal reflux disease without esophagitis; E11.40 Type 2 diabetes mellitus with diabetic neuropathy, unspecified; Z87.891 Personal history of nicotine dependence; Z79.4 Long term (current) use of insulin; Z79.02 Long term (current) use of antithrombotics/antiplatelets; Z79.899 Other long term (current) drug therapy; Z88.6 Allergy status to analgesic agent; Z88.8 Allergy status to other drugs, medicaments and biological substances; W19.XXXA Unspecified fall, initial encounter; Y92.89 Other specified places as the place of occurrence of the external cause
CPT/HCPCS: 36415; 71250; 74176; 80053; 82272; 82550; 82553; 83605; 84484; 85025; 87040; 87493; 87804; 93005; 93010; 96365; 96366; 96368; 99285; A9270; J1956; J7030; J7060